=== PATIENT | female | born 1970 | race Caucasian/White ===

== ENCOUNTER → 2016-05-08 | Outpatient (CLI) | payer OTHER ==
[~2016-05-08] MED LIST: ALBU1AER9 INH; EPP3/2 IM; IBUP-1459 PO; LSX40 PO; Levothyroxine Sodium PO; METH1TAB15 PO; NYSCR30 TOP; RANI150T3 PO; TRAMTAB5 PO; VIT IM
== END | disposition home or self-care (01) ==
LOC: C.PAPS 09:59
PROVIDERS: ATTEND Obstetrics & Gynecology
DX: Z12.4 Encounter for screening for malignant neoplasm of cervix (principal); N91.5 Oligomenorrhea, unspecified

== ENCOUNTER → 2016-07-20 | Outpatient (CLI) | payer OTHER | END | disposition home or self-care (01) | LOC: C.LABSPEC 11:00 | PROVIDERS: ATTEND Internal Medicine | DX: E55.9 Vitamin D deficiency, unspecified (principal) ==

== ENCOUNTER → 2016-11-30 | Outpatient (CLI) | payer OTHER | END | disposition home or self-care (01) | LOC: C.LAB 12:33 | PROVIDERS: ATTEND Internal Medicine | DX: E55.9 Vitamin D deficiency, unspecified (principal); E03.9 Hypothyroidism, unspecified ==

== ENCOUNTER → 2017-04-05 | Outpatient (CLI) | payer OTHER ==
[~2017-04-05] MED LIST changes: +ERGO500037 PO; +IBUP-1050 PO; +LEVO100T7 PO; +VNTHFA/IN INH
[2017-04-05 14:51] LABS: ALBUMIN 3.7 gm/dl (3.4-5.0); ALT/SGPT 22 U/L (12-78); BLOOD UREA NITROGEN 20 mg/dl (7-18); CARBON DIOXIDE 28 mmol/L (21-32); CHOLESTEROL 136 mg/dl (0-200); CREATININE 0.78 mg/dl (0.60-1.20); GLUCOSE 77 mg/dl (70-99); POTASSIUM 4.2 mmol/L (3.5-5.1); SODIUM 137 mmol/L (136-145)
[2017-04-05 15:01] LABS: ALKALINE PHOSPHATASE 72 U/L (45-117); AST/SGOT 15 U/L (15-37); LDL CHOLESTEROL CALCULATED 78 mg/dl; TOTAL PROTEIN 7.9 gm/dl (6.4-8.2)
== END | disposition home or self-care (01) ==
LOC: C.LAB 17:42
PROVIDERS: ATTEND Internal Medicine
DX: E55.9 Vitamin D deficiency, unspecified (principal); E03.9 Hypothyroidism, unspecified; T14.8XXA Other injury of unspecified body region, initial encounter; W57.XXXA Bitten or stung by nonvenomous insect and other nonvenomous arthropods, initial encounter; D50.9 Iron deficiency anemia, unspecified; E53.8 Deficiency of other specified B group vitamins

== ENCOUNTER → 2017-08-07 | Outpatient (CLI) | payer OTHER ==
[~2017-08-07] MED LIST changes: -ERGO500037 PO; -IBUP-1050 PO; -LEVO100T7 PO; -VNTHFA/IN INH
[2017-08-07 15:00] LABS: FOLLICLE STIMULAT HORMONE 8.72 IU/L
== END | disposition home or self-care (01) ==
LOC: C.LAB1850 13:06
PROVIDERS: ATTEND Internal Medicine
DX: E55.9 Vitamin D deficiency, unspecified (principal); N91.1 Secondary amenorrhea

== ENCOUNTER → 2017-11-05 | Outpatient (CLI) | payer OTHER ==
[~2017-11-05] MED LIST changes: -ALBU1AER9 INH; +ATROPINE SULFATE 0.1 MG/ML 10 ML SYR ONE; +DOBUTamine HCL 12.5 MG/ML 20 ML VIAL ONE; +ERGO500037 PO; +IBUP-1050 PO; -IBUP-1459 PO; +LEVO100T7 PO; -Levothyroxine Sodium PO; +METOPROLOL TARTRATE 1 MG/ML VIAL ONE; +PERFLUTREN LIPID MICROSPHERE (DEFINITY) IV ONE; +VNTHFA/IN INH
--- NOTE | 2017-11-05 15:33 | DOBUTAMINE ECHO ---
*NOTICE TO RECEIVING DEMOCRAT AGENCY This information is strictly Confidential and protected under [place] law. [place] law prohibits you from making any further disclosure of this information unless further disclosure is expressly permitted by the written consent of the person to whom it pertains or is authorized by law. A general authorization for the release of medical or other information is not sufficient for this purpose. Hospital accepts no responsibility if the information is made available to any other person, INCLUDING THE PATIENT. Interpretation Summary * Name: ALDA CHAMORRO Study Date: 11/05/2017 09:34 AM BP: 101/57 mmHg * Patient Location: [facility] HR: 51 * : 1970 (M/d/yyyy) Gender: Female Height: 61 in * Age: 47 yrs Ethnicity: CA Weight: 380 lb * Performed By: Yaneli Harris RDCS * * Reason For Study: PRE OP, ABNL EKG * BSA: 2.5 m2 * -- Conclusions -- * There is mild asymmetric left ventricular hypertrophy. * Left ventricular systolic function is normal. * Normal diastolic function * Right ventricular systolic pressure is normal. * Normal dobutamine echocardiogram without evidence of inducible ischemia Procedure Details * DOBUTAMINE ECHO, CPT#99019 * A contrast injection of Definity was performed to improve assessment of LV function. * Contrast was injected into an intravenous site in the central line. * One vial of Definity ultrasound contrast was diluted in normal saline to a total volume of 10 ml. A total of '5' ml of solution was administered during imaging. * Lot # [id number] of Definity utilized for procedure. * Expiration date OCT 24. * The attending nurse who injected the contrast agent was FELA ROJO RN. Left Ventricular Findings with Stress * Normal dobutamine echocardiogram without evidence of inducible ischemia Left Ventricle * The left ventricle is normal in size. * There is mild asymmetric left ventricular hypertrophy. * Left ventricular systolic function is normal. * Ejection Fraction = 55-60%. * Normal diastolic function * The left ventricular wall motion is normal at rest. Right Ventricle * The right ventricle is grossly normal size. Atria * The left atrial size is normal. * Right atrial size is normal. Mitral Valve * The mitral valve is grossly normal. * Significant mitral regurgitation is absent. Tricuspid Valve * The tricuspid valve is not well visualized, but is grossly normal. * There is mild tricuspid regurgitation. * Right ventricular systolic pressure is normal. Aortic Valve * The aortic valve is not well visualized. * No hemodynamically significant valvular aortic stenosis. * There is no significant aortic regurgitation. Pulmonic Valve * The pulmonic valve is not well visualized. Great Vessels * The aortic root is normal size. Pericardium * There is no pericardial effusion. Stress Parameters * Normal baseline electrocardiogram. * There was a brief run of what appeared to be an atrial tachycardia, otherwise no significant ST or T-wave changes. * Rest heart rate was '51' BPM. * Rest blood pressure was '101/57' * Maximum heart rate achieved was 148 bpm. * Maximum heart rate was 85 % of maximum age-predicted heart rate. * Maximum blood pressure was '150/74' * Maximum Dobutamine infusion rate was '50' mcg/kg/min. * A total of 1.25 mg of intravenous Atropine was used to supplement Dobutamine for heart rate response. * Dobutamine infusion was terminated due to achieving target heart rate * A total of 10 mg of IV Metoprolol was administered to reverse Dobutamine-induced tachycardia. Left Ventricular Findings with Stress * Baseline EKG was normal There were no significant ST or T-wave changes during peak dobutamine infusion or recovery Baseline echocardiogram demonstrated normal LV systolic function There was normal augmentation of all segments without inducible wall motion abnormalities at peak dobutamine infusion MMode 2D Measurements and Calculations IVSd 1.6 cm IVSs 1.8 cm LVIDd 4.3 cm LVIDs 2.7 cm LVPWd 1.1 cm LVPWs 1.7 cm IVS/LVPW 1.4 FS 38.3 % EDV(Teich) 82.7 ml ESV(Teich) 25.8 ml EF(Teich) 68.8 % EDV(cubed) 79.1 ml ESV(cubed) 18.6 ml EF(cubed) 76.5 % % IVS thick 12.1 % % LVPW thick 48.5 % LV mass(C)d 218.2 grams LV mass(C)dI 87.9 grams/m\S\2 LV mass(C)s 171.9 grams LV mass(C)sI 69.3 grams/m\S\2 SV(Teich) 56.9 ml SI(Teich) 22.9 ml/m\S\2 SV(cubed) 60.5 ml SI(cubed) 24.4 ml/m\S\2 Ao root diam 2.6 cm Ao root area 5.3 cm\S\2 LA dimension 3.9 cm LA/Ao 1.5 LVAd ap4 36.6 cm\S\2 LVLd ap4 8.6 cm EDV(MOD-sp4) 130.2 ml EDV(sp4-el) 132.8 ml LVAs ap4 17.3 cm\S\2 LVLs ap4 7.5 cm ESV(MOD-sp4) 32.8 ml ESV(sp4-el) 34.0 ml EF(MOD-sp4) 74.8 % EF(sp4-el) 74.4 % SV(MOD-sp4) 97.4 ml SI(MOD-sp4) 39.3 ml/m\S\2 SV(sp4-el) 98.8 ml SI(sp4-el) 39.8 ml/m\S\2 Doppler Measurements and Calculations MV E max julio c 78.8 cm/sec MV A max julio c 69.4 cm/sec MV E/A 1.1 MV dec time 0.31 sec Ao V2 max 274.5 cm/sec Ao max PG 30.1 mmHg Ao max PG (full) 18.6 mmHg Ao V2 mean 170.9 cm/sec Ao mean PG 14.7 mmHg Ao mean PG (full) 8.2 mmHg Ao V2 VTI 73.6 cm LV V1 max PG 11.6 mmHg LV V1 mean PG 6.6 mmHg LV V1 max 170.1 cm/sec LV V1 mean 119.2 cm/sec LV V1 VTI 44.7 cm SV(Ao) 386.8 ml SI(Ao) 155.9 ml/m\S\2 TR max julio c 199.9 cm/sec
== END | disposition home or self-care (01) ==
LOC: C.CPL 09:23
PROVIDERS: ATTEND Physician Assistant
DX: Z01.810 Encounter for preprocedural cardiovascular examination (principal); R06.02 Shortness of breath; R53.83 Other fatigue

== ENCOUNTER → 2017-12-02 | Outpatient (CLI) | payer OTHER ==
[~2017-12-02] MED LIST changes: -ATROPINE SULFATE 0.1 MG/ML 10 ML SYR ONE; -DOBUTamine HCL 12.5 MG/ML 20 ML VIAL ONE; -METOPROLOL TARTRATE 1 MG/ML VIAL ONE; -PERFLUTREN LIPID MICROSPHERE (DEFINITY) IV ONE
[2017-12-02 16:40] LABS: BASO % 0.5 %; BASO ABS # 0.03 K/uL (0-0.2); EOS % 2.4 %; EOS ABS # 0.13 K/uL (0-0.5); HEMATOCRIT 41.6 % (37-47); HEMOGLOBIN 13.6 g/dL (12.0-16.0); LYMPH ABS # 1.92 K/uL (1.2-3.4); MEAN CELL VOLUME 92.2 fL (80-100); MEAN CORPUSCULAR HEMOGLOBIN 30.2 pg (25-34); MEAN CORPUSCULAR HGB CONC 32.7 g/dl (32-36); MONO % 10.6 %; MONO ABS # 0.58 K/uL (0.11-0.59); NEUT % 51.5 %; NEUT ABS # 2.83 K/uL (1.4-6.5); PLATELET COUNT 324 K/uL (130-400); RED CELL DISTRIBUTION WIDTH CV 13.2 % (11.5-14.5); RED CELL DISTRIBUTION WIDTH SD 44.3 fL (36.4-46.3); WHITE BLOOD COUNT 5.49 K/uL (4.8-10.8)
== END | disposition home or self-care (01) ==
LOC: C.LAB1850 15:52
PROVIDERS: ATTEND Obstetrics & Gynecology
DX: Z01.812 Encounter for preprocedural laboratory examination (principal); R93.8 Abnormal findings on diagnostic imaging of other specified body structures

== ENCOUNTER 2019-01-12 16:46 | Inpatient (IN) ==
[2019-01-12] MEDS ORDERED: ONDANSETRON INJ 2 MG/ML 2 ML VIAL IV STA (17:41)
[2019-01-12] MEDS ORDERED: DiphenhydrAMINE HCL 50 MG/ML VIAL IV STA (17:42)
[2019-01-12 17:56] LABS: Basophils # (auto) 0.04 K/uL (0-0.2); Basophils % (auto) 0.3 %; Eosinophils # (auto) 0.17 K/uL (0-0.5); Eosinophils % (auto) 1.4 %; Hematocrit (blood only) 40.9 % (37-47); Hemoglobin 13.3 g/dL (12.0-16.0); Immature Granulocytes # (auto) 0.02 K/uL (0.00-0.02); Immature Granulocytes % (auto) 0.2 %; Lymphocytes # (auto) 1.44 K/uL (1.2-3.4); Lymphocytes % (auto) 11.6 %; Mean Corpuscular Hgb Conc 32.5 g/dL (32-36); Mean Corpuscular Volume 92.1 fL (80-100); Mean Platelet Volume 10.7 fL (7.4-10.4); Monocytes # (auto) 0.71 K/uL (0.11-0.59); Monocytes % (auto) 5.7 %; Neutrophils # (auto) 10.02 K/uL (1.4-6.5); Neutrophils % (auto) 80.8 %; Platelet Count 293 K/uL (130-400); RDW Coefficient of Variation 13.4 % (11.5-14.5); RDW Standard Deviation 45.4 fL (36.4-46.3); Red Blood Count 4.44 M/uL (4.2-5.4)
[2019-01-12 18:12] LABS: Alanine Aminotransferase 32 U/L (12-78); Albumin Level 3.3 gm/dl (3.4-5.0); Aspartate Aminotransferase 15 U/L (15-37); BUN Creatinine Ratio 17.5 (10-20); Blood Urea Nitrogen 14 mg/dl (7-18); Carbon Dioxide 27 mmol/L (21-32); Chloride 106 mmol/L (98-107); Est GFR (African American) 100.9; Est GFR (Non-African American) 87.1; Glucose 110 mg/dl (70-99); Lipase 92 U/L (73-393); Potassium 4.1 mmol/L (3.5-5.1); Sodium 140 mmol/L (136-145)
[2019-01-12 18:14] LABS: Alanine Aminotransferase 32 U/L (12-78); Albumin Level 3.5 gm/dl (3.4-5.0); Aspartate Aminotransferase 16 U/L (15-37); BUN Creatinine Ratio 17.6 (10-20); Blood Urea Nitrogen 14 mg/dl (7-18); Calcium 9.1 mg/dl (8.5-10.1); Carbon Dioxide 27 mmol/L (21-32); Chloride 106 mmol/L (98-107); Est GFR (Non-African American) 89.8; Glucose 107 mg/dl (70-99); Potassium 4.1 mmol/L (3.5-5.1); Sodium 139 mmol/L (136-145)
[2019-01-12 18:15] LABS: Albumin Globulin Ratio 0.8 (0.9-2); Alkaline Phosphatase 70 U/L (45-117); Bilirubin,Total 0.4 mg/dl (0.2-1); Globulin 4.1 gm/dl (2.5-4.0); Total Protein 7.4 gm/dl (6.4-8.2)
[2019-01-12 18:16] LABS: Albumin Globulin Ratio 0.9 (0.9-2); Alkaline Phosphatase 71 U/L (45-117); Bilirubin,Total 0.4 mg/dl (0.2-1); Globulin 3.7 gm/dl (2.5-4.0); Total Protein 7.2 gm/dl (6.4-8.2)
[2019-01-12] MEDS ORDERED: MoRPHine SULFATE 4 MG/ML 1 ML CARP\\VIAL IV STA (18:51)
[2019-01-12] MEDS ORDERED: IOVERSOL 100ml IV PRN (18:52)
--- NOTE | 2019-01-12 19:20 | CT Scan Report ---
CT SCAN OF THE ABDOMEN AND PELVIS WITH IV CONTRAST CLINICAL HISTORY: Generalized abdominal pain. COMPARISON STUDY: Abdominal CT dated 12/20/2018. TECHNIQUE: Following the IV administration of 93 cc of Optiray 320, CT scan of the abdomen and pelvi s is performed from the lung bases to the proximal femora. Images are reviewed in the axial, sagittal , and coronal planes. IV contrast was administered without complication. A dose lowering technique wa s utilized adhering to the principles of ALARA. The examination is degraded by large body habitus, a nd by streak artifact from the body wall abutting the CT gantry. CT DOSE: 2157.49 mGy.cm FINDINGS: Lung bases: The tip of a central venous infusion port terminates at the cavoatrial junction. The hear t is normal in size and without pericardial effusion. The lung bases are clear. Liver: The contrast-enhanced liver is normal in size, contour, and attenuation. There is no intrahepa tic biliary ductal dilatation. The hepatic veins and portal veins are patent. Gallbladder: Surgically absent noting clips in the gallbladder fossa. Spleen: Normal in size and attenuation. Pancreas: Moderately atrophic and grossly unremarkable. Adrenal glands: Unremarkable. Kidneys: The contrast enhanced kidneys are normal in size and without hydronephrosis. The kidneys enh ance symmetrically. Abdominal vasculature: The abdominal aorta is normal in course and caliber. An IVC filter is in place . 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 There is no high-grade bowel obstruction. There is a distended and thick-walled loop of small bowel in the right lower quadrant seen on image #243. This measures up to 4.4 cm and there is surrounding inflamma tory change, tethering of the mesentery, and interloop fluid. No pneumatosis intestinalis or portal v enous gas is seen. A small focal of bowel extends through an anterior abdominal wall defect on image #240. There is fluid within this hernia sac. The appendix is well-visualized and normal. Peritoneum: There is no intraperitoneal free air or abdominal ascites. There is a large fat-containin g supra umbilical hernia seen on image #205. Smaller fat-containing subumbilical hernia as are seen o n images #142 and #160. Lymphadenopathy: None. Pelvic viscera: The bladder, uterus, and adnexa are normal as imaged. Skeletal structures: There is chronic posttraumatic deformity seen in the pubic ring bilaterally. Adv anced arthritic change and deformity is noted in the right hip with joint effusion and numerous calci fied joint bodies. Bilateral iliac bolts are in place. No lytic or blastic lesions are seen. There is generalized fatty atrophy of the pelvic musculature. IMPRESSION: 1. Postoperative changes consistent with a history of Balaji-en-Y gastric bypass surgery. No high-grade bowel obstruction is seen. 2. A knuckle of bowel focally extends into a periumbilical abdominal wall defect in the mid abdomen. Additional fat-containing suprarenal umbilical hernias are noted. 3. There is a focally dilated and thick-walled loop of small bowel in the right lower quadrant with s urrounding edema, interloop fluid, and tethering of the mesentery. No pneumatosis intestinalis or por marie venous gas is seen. There is no intraperitoneal free air. This is pathologically indeterminant, a nd an internal hernia is not excluded. This could also be related to adhesions or possibly the above- mentioned ventral hernia. A focal enteritis is considered much less likely. Surgical consultation is advised. 4. No additional abnormal small bowel loops are identified. Electronically signed by: Gerard Callahan M.D. 01/12/2019 7:18 PM
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
[2019-01-12] MEDS: SODIUM CHLORIDE 0.9% 1000ML 1,000 ML IV SCH (20:06)
[2019-01-12] MEDS ORDERED: ALBUTEROL 0.083% NEBU SOLN 3 ML VIAL NEB PRN (21:45)
[2019-01-12] MEDS ORDERED: HYDROmorphone INJ 0.5 MG/0.5 ML SYR IV PRN (21:45)
[2019-01-12] MEDS ORDERED: ONDANSETRON INJ 2 MG/ML 2 ML VIAL IV PRN (21:45)
[2019-01-12] MEDS ORDERED: ENOXAPARIN INJ 40 MG/0.4 ML SYR SQ SCH (22:00)
[2019-01-12] MEDS: FAMOTIDINE 20 MG TAB PO SCH (22:51)
[2019-01-12] MEDS: KETOROLAC TROMETHAMINE 15 MG/ML VIAL IV PRN (22:58)
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
[2019-01-13] MEDS ORDERED: HEPARIN 100 UNIT/ML 5ML FLUSH FLUSH PRN (02:36)
[2019-01-13] MEDS: SODIUM CHLORIDE 0.9% 1000ML 1,000 ML IV SCH ×2 (03:51→11:50)
[2019-01-13] MEDS: ACETAMINOPHEN 325 MG TAB PO PRN (03:54)
[2019-01-13] MEDS: LEVOTHYROXINE SODIUM 100 MCG TABLET PO SCH (06:14)
[2019-01-13 06:36] LABS: Hematocrit (blood only) 37.4 % (37-47); Hemoglobin 11.5 g/dL (12.0-16.0); Mean Corpuscular Hemoglobin 28.8 pg (25-34); Mean Corpuscular Hgb Conc 30.7 g/dL (32-36); Mean Corpuscular Volume 93.7 fL (80-100); Mean Platelet Volume 11.2 fL (7.4-10.4); Platelet Count 269 K/uL (130-400); RDW Coefficient of Variation 13.5 % (11.5-14.5); RDW Standard Deviation 46.5 fL (36.4-46.3); Red Blood Count 3.99 M/uL (4.2-5.4); White Blood Count 4.88 K/uL (4.8-10.8)
[2019-01-13 07:03] LABS: BUN Creatinine Ratio 19.3 (10-20); Calcium 8.6 mg/dl (8.5-10.1); Creatinine Clr Calc Pharmacy 150.8 ml/min; Est GFR (Non-African American) 104.4
[2019-01-13] MEDS: MEDROXYPROGESTERONE ACETATE 10 MG TAB PO SCH (08:03)
[2019-01-13] MEDS: FAMOTIDINE 20 MG TAB PO SCH ×2 (08:03→20:07)
[2019-01-13] MEDS: KETOROLAC TROMETHAMINE 15 MG/ML VIAL IV PRN ×2 (08:06→21:53)
[2019-01-13] MEDS ORDERED: INFLUENZA VIRUS QUAD VACCINE 0.5 ML SYR IM ONE (08:15)
[2019-01-13] MEDS ORDERED: INFLUENZA ADMINISTRATION CHARGE ONE (08:15)
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
--- NOTE | 2019-01-13 12:10 | Hospitalist Progress Note ---
Date of Service January 13, 2019 Assessment & Plan (1) Ventral hernia: Does not appear to be incarcerated. Abdominal discomfort has resolved. Surgery consultation noted. Start clear liquid diet and advance as tolerated. Ambulate. Decrease IV fluids. Surgery does not appear to be necessary at this time. er. (2) Abdominal pain: Pain and nausea control. Resolved (3) Hypothyroidism: Continue Synthroid (4) Systolic murmur: Awaiting cardiac echo report. Asymptomatic. Probably a benign murmur. (5) GERD (gastroesophageal reflux disease): Continue ranitidine Dispositionhopefully home tomorrow Subjective Alert and oriented. She has some low back pain but states her abdominal pain has resolved. Surgery consultation noted. Will start clear liquid diet and advance as tolerated. Taper down IV fluids. Ambulate. Awaiting cardiac echo report to evaluate her cardiac murmur which is probably benign. Review of Systems Review of Systems: Constitutional-no fever or chills ENT-no blurred vision, no double vision, no epistaxis, no sore throat Respiratory-no cough, no wheezing, no shortness of breath Cardiac-no palpitations, no chest pain, no syncope GI-no nausea, vomiting, diarrhea, melena, hematochezia -no urinary retention, no urinary incontinence, no dysuria, no hematuria Musculoskeletal-no joint pain, no muscle tenderness. Low back discomfort which appears to be of muscular etiology Skin-no bruising, no rashes, no pruritus Neuro-no isolated weakness, no paresthesia, no weakness Psych-no depression, no anxiety Physical Exam Physical Exam: General-alert and oriented x3, no fevers, no chills. Morbidly obese HEENT-head atraumatic and normocephalic, TMs intact bilaterally, pupils equal and reactive to light, extraocular muscles intact Neck-no lymphadenopathy or thyromegaly, trachea midline Chest-clear to auscultation percussion. No rales wheezing or rhonchi Cardiac-regular rate and rhythm, normal S1 and S2. Grade 3/6 harsh systolic murmur. Negative S3. Negative S 4 Abdomen-normal bowel sounds, nontender, no hepatosplenomegaly. Obese. No palpable hernias Extremities-no cyanosis, clubbing, or edema Neuro-cranial nerves II through XII intact, motor and sensory function within normal limits, strength symmetrical 5/5, no focal deficits Psych-normal affect, normal mood Results & Data Vital Signs (Past 12 Hours) Vital Signs Temp Pulse Pulse Resp BP BP Pulse Ox 01/13/19 10:59 37.2 C 45 L 20 122/62 95 01/13/19 10:33 44 L 01/13/19 07:57 36.9 C 46 L 16 136/76 96 01/13/19 04:00 36.6 C 52 L 20 145/72 H 97 01/13/19 00:14 52 L Laboratory Results 01/13/19 05:46 01/13/19 05:46 PG Care Time/CCT Total # of Minutes Spent Total Time Spent with Patient: Total time spent is greater than 50% in coordination of care (as documented) at patient's floor/unit and/or counseling patient:
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
[2019-01-13] MEDS ORDERED: MICONAZOLE NITRATE POWDER 43 GM EXT PRN (20:23)
[2019-01-13] MEDS: ENOXAPARIN INJ 40 MG/0.4 ML SYR SQ SCH (21:09)
[2019-01-14] MEDS: SODIUM CHLORIDE 0.9% 1000ML 1,000 ML IV SCH (00:36)
[2019-01-14] MEDS: ACETAMINOPHEN 325 MG TAB PO PRN (05:50)
[2019-01-14] MEDS: LEVOTHYROXINE SODIUM 100 MCG TABLET PO SCH (05:50)
[2019-01-14 06:44] LABS: Basophils # (auto) 0.03 K/uL (0-0.2); Basophils % (auto) 0.6 %; Eosinophils # (auto) 0.24 K/uL (0-0.5); Eosinophils % (auto) 4.9 %; Hematocrit (blood only) 35.4 % (37-47); Hemoglobin 11.3 g/dL (12.0-16.0); Lymphocytes # (auto) 1.36 K/uL (1.2-3.4); Lymphocytes % (auto) 27.6 %; Mean Corpuscular Hemoglobin 29.4 pg (25-34); Mean Corpuscular Hgb Conc 31.9 g/dL (32-36); Mean Corpuscular Volume 92.2 fL (80-100); Mean Platelet Volume 10.8 fL (7.4-10.4); Monocytes # (auto) 0.43 K/uL (0.11-0.59); Monocytes % (auto) 8.7 %; Neutrophils # (auto) 2.86 K/uL (1.4-6.5); Neutrophils % (auto) 58.2 %; Platelet Count 252 K/uL (130-400); RDW Coefficient of Variation 13.5 % (11.5-14.5); RDW Standard Deviation 45.5 fL (36.4-46.3); Red Blood Count 3.84 M/uL (4.2-5.4); White Blood Count 4.92 K/uL (4.8-10.8)
[2019-01-14 07:11] LABS: BUN Creatinine Ratio 16.2 (10-20); Calcium 8.4 mg/dl (8.5-10.1); Creatinine Clr Calc Pharmacy 131.2 ml/min; Est GFR (African American) 102.5; Est GFR (Non-African American) 88.4; Potassium 3.8 mmol/L (3.5-5.1)
[2019-01-14] MEDS: ENOXAPARIN INJ 40 MG/0.4 ML SYR SQ SCH (07:37)
[2019-01-14] MEDS: MEDROXYPROGESTERONE ACETATE 10 MG TAB PO SCH (07:37)
[2019-01-14] MEDS: FAMOTIDINE 20 MG TAB PO SCH (07:37)
--- NOTE | 2019-01-14 12:05 | Hospitalist Progress Note ---
Date of Service January 14, 2019 Assessment & Plan (1) Ventral hernia: Producing intermittent discomfort. No obstruction. Passing flatus. Diet advance to regular diet this morning. Hopefully home later today. Surgery consultation noted. No surgical intervention necessary at this time. Ambulate. (2) Abdominal pain: Pain and nausea control as needed. (3) Hypothyroidism: Continue Synthroid (4) Systolic murmur: This appears to be a dynamic left ventricular outflow tract murmur without any obstruction. Appreciate cardiology consultation and recommendations. No further intervention needed at this time. (5) GERD (gastroesophageal reflux disease): Continue ranitidine Dispositionhopefully home later today Subjective Intermittent abdominal discomfort but she is passing flatus and there is no evidence of obstruction. Diet advance to regular diet today. Hopefully she can go home later today. IV fluids discontinued. Cardiology consultation noted. Previous evaluation of the heart murmur revealed a dynamic left ventricular outflow tract murmur with no obstruction. No further intervention needed at this time. Review of Systems Review of Systems: Constitutional-no fever or chills ENT-no blurred vision, no double vision, no epistaxis, no sore throat Respiratory-no cough, no wheezing, no shortness of breath Cardiac-no palpitations, no chest pain, no syncope GI-no nausea, vomiting, diarrhea, melena, hematochezia. Intermittent midline abdominal discomfort -no urinary retention, no urinary incontinence, no dysuria, no hematuria Musculoskeletal-no joint pain, no muscle tenderness Skin-no bruising, no rashes, no pruritus Neuro-no isolated weakness, no paresthesia, no weakness Psych-no depression, no anxiety Physical Exam Physical Exam: General-alert and oriented x3, no fevers, no chills HEENT-head atraumatic and normocephalic, TMs intact bilaterally, pupils equal and reactive to light, extraocular muscles intact Neck-no lymphadenopathy or thyromegaly, trachea midline Chest-clear to auscultation percussion. No rales wheezing or rhonchi Cardiac-regular rate and rhythm, normal S1 and S2, no murmurs Abdomen-normal bowel sounds, nontender, no hepatosplenomegaly Extremities-no cyanosis, clubbing, or edema Neuro-cranial nerves II through XII intact, motor and sensory function within normal limits, strength symmetrical 5/5, no focal deficits Psych-normal affect, normal mood Results & Data Vital Signs (Past 12 Hours) Vital Signs Temp Pulse Pulse Pulse Pulse Resp BP 01/14/19 11:08 36.8 C 44 L 14 01/14/19 08:05 53 L 01/14/19 07:22 37.2 C 48 L 16 128/88 01/14/19 04:31 36.6 C 51 L 20 BP Pulse Ox 01/14/19 11:08 130/78 97 01/14/19 08:05 01/14/19 07:22 98 01/14/19 04:31 138/75 97 Laboratory Results 01/14/19 06:16 01/14/19 06:16 PG Care Time/CCT Total # of Minutes Spent Total Time Spent with Patient: Total time spent is greater than 50% in coordination of care (as documented) at patient's floor/unit and/or counseling patient: (1) Ventral hernia Obstruction and gangrene presence: without obstruction or gangrene Qualified Code(s): K43.9 - Ventral hernia without obstruction or gangrene (2) Abdominal pain Abdominal location: epigastric Qualified Code(s): R10.13 - Epigastric pain
--- NOTE | 2019-01-14 13:08 | Discharge Summary ---
Date of Service January 14, 2019 Admission HPI Per Admitting Provider 48 y/o female presented to the ED with a constant and sharp abdominal pain that had been present for 2 hours that started as she was walking. No N/V/D, cough, chest pain, SOB, or blood in stools. She feels that she has had a fever of the past few days. She is having low back pain, but reports this to be chronic. No vaginal bleeding or discharge. Admission Exam Per Admitting Provider General- adult female, NAD Head- atraumatic Eyes- PERRL, EOMI, anicteric ENT- oropharynx clear Neck- supple, no JVD, no adenopathy, no thyromegaly. Lungs- clear to auscultation, No rales, rhonchi, or wheezes. Heart- regular rhythm; + II/ GEORGINA, no gallop, no rub appreciated Abdomen- normal bowel sounds, soft, + diffuse tenderness to palpation. 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 Skin- warm & dry Principal Diagnosis Abdominal pain, ventral hernia without obstruction or incarceration Discharge Exam General-alert and oriented x3, no fevers, no chills HEENT-head atraumatic and normocephalic, TMs intact bilaterally, pupils equal and reactive to light, extraocular muscles intact Neck-no lymphadenopathy or thyromegaly, trachea midline Chest-clear to auscultation percussion. No rales wheezing or rhonchi Cardiac-regular rate and rhythm, normal S1 and S2, no murmurs Abdomen-normal bowel sounds, nontender, no hepatosplenomegaly Extremities-no cyanosis, clubbing, or edema Neuro-cranial nerves II through XII intact, motor and sensory function within normal limits, strength symmetrical 5/5, no focal deficits Psych-normal affect, normal mood Discharge Data Allergies Allergy/AdvReac Type Severity Reaction Status Date / Time hornet venom Allergy Severe ANAPHYLAXIS Verified 12/23/18 10:39 WITH YELLOW JACKETS hydrocodone Allergy Intermediate Rash Verified 12/23/18 10:39 codeine Allergy Unknown ALLERGIC Verified 12/23/18 10:39 GENERIC TYLENOL #3 (?)-RASH HIVES Iodinated Contrast Media Allergy Unknown RASH Verified 12/23/18 10:39 ITCHY-CAN EAT SHELLFISH adhesive AdvReac Unknown TAPE-SWELLING Verified 12/23/18 10:39 TESTS SKIN Consultations 01/12/19 19:55 ED Decision to Admit Stat 01/12/19 20:55 Consult General Surgery Routine 01/13/19 13:41 Consult Cardiology Routine Ordered Studies 01/12/19 17:41 CT abd pelvis IV con only Stat Hospital Course (1) Ventral hernia: Producing intermittent discomfort. No obstruction. Passing flatus. Diet advance to regular diet this morning. Hopefully home later today. Surgery consultation noted. No surgical intervention necessary at this time. Ambulate. (2) Abdominal pain: Pain and nausea control as needed. (3) Hypothyroidism: Continue Synthroid (4) Systolic murmur: This appears to be a dynamic left ventricular outflow tract murmur without any obstruction. Appreciate cardiology consultation and recommendations. No further intervention needed at this time. (5) GERD (gastroesophageal reflux disease): Continue ranitidine Dispositionhopefully home later today Total Time Total Time Spent Total Time Spent (In Minutes): 35 Total Time Includes: Examination of the Patient, Discharge Planning and Medication Reconciliation Discharge Plan Discharge Items Patient Disposition: Home - Self-Care Reason For Visit: VENTRAL HERNIA,SBO Discharge Diagnosis: Symptomatic ventral hernia, benign heart murmur Activity: Resume your previous activity Lifting: None Bathing: No limitations Driving/Machine Use: No limitations Weightbearing: Full weightbearing Non-emergency contact: Primary Care Provider Call non-emergency contact if: you have any medication questions and your symptoms worsen Follow-up/Referrals: Nelson Viveros III, MD [Primary Care Provider] - Diet: Regular Addtl Attending Provider Instructions: See primary care provider as soon as possible for referral to a general surgeon for discussion regarding repair of ventral hernia Pending Studies at Discharge: No Stand-Alone Forms: My [facility] [employer] Medications and DC Order Prescriptions: Continued epinephrine 0.3 mg/0.3 mL Auto-Injector 0.3 mg IM Q3H PRN (Reason: Allergic Reaction) Qty: 0 RF: 0 furosemide 40 mg Tablet 80 mg PO DAILY PRN (Reason: Edema) Qty: 0 RF: 0 ibuprofen 200 mg Tablet 1,000 mg PO DAILY PRN (Reason: Pain) Qty: 0 RF: 0 nystatin 100,000 unit/gram cream 1 appln TOP BID Qty: 30 RF: 2 tramadol-acetaminophen [Ultracet] 37.5-325 mg tablet 1 tab PO Q6H PRN (Reason: Pain) 30 Days Qty: 90 RF: 0 albuterol sulfate 90 mcg/actuation HFA aerosol inhaler 1 - 2 puffs INHALATION Q4H PRN (Reason: SOB) Qty: 1 RF: 0 levothyroxine 100 mcg tablet 100 mcg PO DAILY 90 Days Qty: 90 RF: 1 ranitidine HCl 150 mg tablet 150 mg PO HS Qty: 90 RF: 3 methylphenidate HCl 20 mg tablet extended release 20 mg PO DAILY PRN (Reason: hypersomnia) Qty: 30 RF: 0 cyanocobalamin (vitamin B-12) 1,000 mcg/mL kit 1,000 mcg IM MONTHLY RF: 0 medroxyprogesterone 10 mg Tablet 10 mg PO DAILY RF: 0 ergocalciferol (vitamin D2) [Vitamin D2] 50,000 unit capsule 100,000 unit PO WK RF: 0 fluticasone propionate [Flonase Allergy Relief] 50 mcg/actuation spray,suspension 2 sprays intranasal DAILY PRN (Reason: Congestion) RF: 0 nystatin 100,000 unit/gram powder 1 appln TOP TID PRN (Reason: Skin Irritation) RF: 0 Discharge Orders: Discharge Order (Routine); Ordered 01/14/19 Ordered By: Yg Coleman Admission Data Admit Date/Time: 01/12/19 20:54 Attending Provider: Ezequiel Snyder Admit Provider: Ezequiel Snyder Primary Care Provider: Nelson Viveros III Other Providers: Ezequiel Snyder ; Vernon Richardson ; Abe Mariano ; Travis Reno ; Duglas Sauceda ; Oh Nair ; Jose Sierra ; Galo Mercado Jr ; Samm Harvey ; Renetta Whitfield ; Liza Fuentes ; Delmar Gray ; Delmar Miles ; Randall Arshad ; Yg Fabian ; Ambreen Pablo ; Laverne Brambila
== END 2019-01-14 14:57 | disposition home or self-care (01) | DRG 394 ==
LOC: ED 16:46 → 2W 20:54

== ENCOUNTER 2022-07-19 11:47 | Inpatient (IN) ==
[2022-07-19 13:07] LABS: Basophils # (auto) 0.03 K/uL (0-0.2); Basophils % (auto) 0.5 %; Eosinophils # (auto) 0.05 K/uL (0-0.50); Eosinophils % (auto) 0.9 %; Hematocrit (blood only) 40.2 % (37.0-47.0); Hemoglobin 12.8 g/dl (12.0-16.0); Immature Granulocytes # (auto) 0.01 K/uL (0.01-0.20); Immature Granulocytes % (auto) 0.2 %; Lymphocytes # (auto) 1.41 K/uL (1.2-3.4); Mean Corpuscular Hemoglobin 29.1 pg (25.0-34.0); Mean Corpuscular Hgb Conc 31.8 g/dL (32.0-36.0); Mean Corpuscular Volume 91.4 fL (80.0-100.0); Monocytes # (auto) 0.48 K/uL (0.11-0.59); Monocytes % (auto) 8.5 %; Neutrophils # (auto) 3.66 K/uL (1.40-6.50); Neutrophils % (auto) 64.9 %; Platelet Count 272 K/uL (130-400); RDW Coefficient of Variation 13.6 % (11.5-14.5); RDW Standard Deviation 45.4 fL (36.4-46.3); White Blood Count 5.64 K/ul (4.8-10.8)
[2022-07-19 13:20] LABS: Pregnancy Test, Serum Negative (Negative)
[2022-07-19 13:21] LABS: Albumin Globulin Ratio 1.1 (0.9-2); Albumin Level 3.7 gm/dl (3.4-5.0); BUN Creatinine Ratio 15.9 (10-20); Bilirubin,Total 0.7 mg/dl (0.2-1.0); Calcium 8.8 mg/dl (8.6-10.3); Creatinine Clr Calc Pharmacy 133.1 ml/min; Est GFR (African American) 117.6 ml/min; Est GFR (Non-African American) 101.5 ml/min; Globulin 3.3 gm/dl (2.5-4.0); Potassium 3.7 mmol/L (3.5-5.1)
[2022-07-19] MEDS ORDERED: SODIUM CHLORIDE 0.9% 1000ML 1,000 ML IV ONE (14:18)
[2022-07-19] MEDS ORDERED: METOCLOPRAMIDE HCL INJ 5 MG/ML 2 ML VIAL IV STA (14:19)
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
[2022-07-19 15:08] LABS: Appearance Urine Turbid (Clear); Bacteria Urine Automated 4+ (Negative); Blood Urine 1+ (Negative); Color Urine Dark Yellow; Epithelial Cell Urine Auto >30 /lpf (0-5); Glucose Urine UA Negative (Negative); Ketones Urine Trace (Negative); Leukocyte Esterase Urine 1+ (Negative); Nitrite Urine Positive (Negative); Protein Urine Trace (Negative); Specific Gravity Urine 1.029 (1.000-1.030); Urobilinogen Urine Negative (Negative); pH Urine 5.5 (4.5-7.5)
--- NOTE | 2022-07-19 15:21 | CT Scan Report ---
CT OF THE ABDOMEN AND PELVIS WITHOUT CONTRAST CLINICAL HISTORY: Abdominal pain, nausea and vomiting. COMPARISON STUDY: CT of the abdomen and pelvis May 03, 2022. TECHNIQUE: Axial images of the abdomen and pelvis were obtained without IV contrast. Images were revi ewed in the axial, sagittal, and coronal planes. Automated exposure control was utilized for the [place] dy. A dose lowering technique was utilized adhering to the principles of ALARA. FINDINGS: Lung bases are unremarkable. No pneumatosis, free air or portal venous gas is present. Eval uation of the abdomen and pelvis is suboptimal given lack of IV contrast. There is no biliary ductal dilatation status post cholecystectomy. Spleen, adrenal glands, kidneys and pancreas are normal. IVC filter is in place. There are postoperative findings consistent with Balaji-en-Y gastric bypass. Note i s again made of multifocal subcutaneous stranding and skin thickening of the anterior abdominal wall. This was shown on prior CT. Multiple fat containing ventral hernias are noted. The inferior most missael tral hernia on axial image 285 of 521 likely contains a small portion of the small bowel loop. There is associated fluid within the hernia sac. There is adjacent stranding. There is mild dilatation of t he upstream small bowel loops which measure up to 3.3 cm in caliber. There is moderate associated sma ll bowel wall thickening with associated mesenteric stranding. This apparent inflammation is new sinc e CT of May 03, 2022. There is no evidence for a colonic obstruction. No acute fractures are iden tified. Chronic deformity of the right hip with osteophytosis noted. There are postoperative findings within the sacroiliac joints. Chronic deformities of the inferior pubic rami are noted. IMPRESSION: 1. Multiple ventral hernias. The inferior most ventral hernia contains a portion of a small bowel loo p. Mild dilatation of upstream small bowel suggestive of a small bowel obstruction related to the missael tral hernia. Associated moderate small bowel wall thickening and mesenteric infiltration is likely re lated to the small bowel obstruction. Fluid within the hernia sac. Although less likely, a nonspecifi c enteritis could appear similar. Surgical consultation is recommended. 2. Suboptimal evaluation of the abdomen and pelvis given lack of contrast. 3. Status post Balaji-en-Y gastric bypass. 4. Multifocal subcutaneous stranding and skin thickening of the anterior abdominal wall which was venu wn on prior CT. This could reflect edema or cellulitis. ACT 112: Negative or not required by law. Electronically signed by: Alan Quijano M.D. 07/19/2022 3:20 PM
[2022-07-19 15:39] LABS: Bilirubin Urine 1+ (Negative)
[2022-07-19] MEDS ORDERED: MoRPHine SULFATE 4 MG/ML 1 ML CARP\\VIAL IV STA (15:50)
[2022-07-19 16:09] LABS: RBC Urine Automated 0-4 /hpf (0-4)
--- NOTE | 2022-07-19 16:48 | Surgery Consultation ---
Date of Consultation July 19, 2022 Assessment & Plan (1) Incarcerated ventral hernia: pt is a 52 year-old female who presents to ER with 3 days history periumbilical pain with nausea and vomiting, UA- nitrite positive,UTI, CT scan- Multiple ventral hernias. The inferior most ventral hernia contains a portion of a small bowel loop. Mild dilatation of upstream small bowel suggestive of a small bowel obstruction related to the ventral hernia. Associated moderate small bowel wall thickening and mesenteric infiltration is likely related to the small bowel obstruction. Fluid within the hernia sac. Although less likely, a nonspecific enteritis could appear similar. Surgical consultation is recommended. IMP: incarcerated ventral hernia, SBO, UTI, Plan,base on pt's H/P, labs and CT scan finding, I recommend to open repair inferior incarcerated ventral, possible mesh, other ventral hernia( above Umbilical area) will repair 3 months from now on, D/W benefits, risks and alternatives of the surgery, the risks - infection, bleeding, injury other organs, hernia recurrence, complications relate to mesh, NV, DVT, , pt understood, she agreed with surgery, she signed informed consent, I answered all questions, pre-op iv antibiotic, History of Present Illness Reason for Consultation: incarcerated ventral hernia Requesting Physician: Alex Oropeza History of Present Illness CHIEF COMPLAINT: abdominal pain HPI: Patient is a 52-year-old female who presents ER for periumbilical abdominal pain which started on Saturday. Associate with nausea vomiting. Has not had any vomiting since yesterday. Denies any dysuria urgency or frequency. Previous history of cholecystectomy. Still has her appendix. No fevers. No headache or change in vision. No chest pain or shortness of breath. No other exacerbating or remitting factors. I ( Yamile Stanley MD ) got a call for consult incarcerated ventral hernia, I reviewed pt's H/P, labs and CT scan with pt, pt had gastric bypass 20 years ago, Allergies Allergy/AdvReac Type Severity Reaction Status Date / Time hornet venom Allergy Severe ANAPHYLAXIS Verified 05/10/22 08:37 WITH YELLOW JACKETS codeine Allergy Intermediate ALLERGIC Verified 05/10/22 08:37 GENERIC TYLENOL #3 (?)-RASH HIVES hydrocodone Allergy Intermediate Rash Verified 05/10/22 08:37 Iodinated Contrast Media Allergy Intermediate RASH Verified 05/10/22 08:37 ITCHY-CAN EAT SHELLFISH adhesive AdvReac Intermediate TAPE-SWELLING Verified 05/10/22 08:37 TESTS SKIN Home Medications Medication Instructions Recorded Confirmed Type cyanocobalamin (vitamin B-12) 1,000 mcg IM MONTHLY 11/13/18 07/19/22 History 1,000 mcg/mL injection kit medroxyprogesterone 10 mg tablet 10 mg PO DAILY 12/20/18 07/19/22 History fluticasone propionate 50 2 spray intranasal DAILY PRN 03/24/20 07/19/22 Rx mcg/actuation nasal Congestion #47.4 mL spray,suspension (Flonase Allergy Relief) miscellaneous medical supply #1 ea 06/16/20 05/10/22 Rx famotidine 40 mg tablet 40 mg PO HS #90 tabs 03/27/22 07/19/22 Rx furosemide 40 mg tablet See Rx Instructions PO DAILY PRN 03/27/22 07/19/22 Rx Edema #180 tabs ergocalciferol (vitamin D2) 1,250 100,000 unit PO WK #24 caps 04/27/22 07/19/22 Rx mcg (50,000 unit) capsule (Vitamin D2) albuterol sulfate 90 mcg/actuation 2 puff inhalation Q4H PRN 05/14/22 07/19/22 Rx aerosol inhaler Shortness Of Breath #1 inhaler epinephrine 0.3 mg/0.3 mL 0.3 mg (0.3 mL) IM Q3H PRN 05/14/22 07/19/22 Rx injection, auto-injector Allergic Reaction #1 ea nystatin 100,000 unit/gram topical 1 applic topical BID PRN Skin 05/14/22 07/19/22 Rx cream Irritation #15 grams nystatin 100,000 unit/gram topical 1 applic topical DAILY PRN rash 05/14/22 07/19/22 Rx powder #60 grams tramadol 37.5 mg-acetaminophen 325 1 tab PO Q6H PRN Pain 30 days #90 05/14/22 07/19/22 Rx mg tablet tabs clotrimazole 1 % topical solution See Rx Instructions topical BID 05/21/22 07/19/22 Rx #30 mL levothyroxine 100 mcg tablet 100 mcg PO DAILY #90 tabs 06/13/22 07/19/22 Rx methylphenidate HCl 20 mg 40 mg PO DAILY hypersomnia #60 tabs 07/12/22 07/19/22 Rx tablet,extended release Patient History Medical History Allergic reaction to bee sting Anemia Asthma Bowel perforation CDH (congenital dislocation of the hip) Complex endometrial hyperplasia with atypia Dislocation of hip Endometrial polyp Epicondylitis elbow, medial Female infertility GERD (gastroesophageal reflux disease) History of DVT (deep vein thrombosis) Hypothyroidism Lymphedema Morbid obesity with BMI of 60.0-69.9, adult Narcolepsy Oligomenorrhea Osteoarthritis Secondary amenorrhea Sleep apnea TMJ (temporomandibular joint disorder) Surgical History H/O hand surgery H/O repair of left rotator cuff History of cholecystectomy (~1999) History of colonoscopy History of esophagogastroduodenoscopy (EGD) History of gastric bypass History of hip surgery History of laparotomy S/P IVC filter Family History Father Family history of diabetes mellitus Diabetes Uncle Diabetes Social History Smoking Status: Never smoker Second Hand Exposure: No; Hx Alcohol Use: Yes Alcohol type: beer and hard liquor Alcohol Intake Frequency: Monthly or Less Hx Substance Use: Yes Prescribed Medications: Opiates and Painkillers Non- Prescribed Medications: Amphetamines and IV Drugs Preferred Language: Cook Islander Communication Ability: Effective Chef German Required: No Beliefs That Will Affect Care: None marital status: Current Living Situation: Parent current occupational status: disabled Feels Safe at Home: Yes Assistive Devices: Crutches and Glasses Review of Systems Constitutional: obesity Eyes: as per Subjective / HPI Respiratory: sleep apnea Cardiovascular: Additional Comments: mitral regurgitation Gastrointestinal: gastric bypass Musculoskeletal: arthritis Neurologic: as per Subjective / HPI Psychiatric: as per Subjective / HPI Endocrine: hypothyroidism Hematologic / Lymphatic: Vitamin B 12, D, deficiency Physical Exam Constitutional: obesity Eyes: PERRL, conjunctivae normal, anicteric sclerae Neck: trachea midline, no thyromegaly Respiratory: normal respiratory effort, lungs clear to auscultation Cardiovascular: RRR, no murmur, no edema Gastrointestinal (Abdomen): multiple scar, middle line scar, one ventral hernia located above umbilical area, soft, reducible, no tenderness, other ventral hernia located just below umbilical area, tenderness, not reducible, incarcerated ventral hernia, some skin redness, BS +, Musculoskeletal: no cyanosis or clubbing, extremities motor strength 5/5 Neurologic: patellar DTR's 2+ bilat, sensation intact Psychiatric: A+Ox3, euthymic affect Results & Data Vital Signs (Past 12 Hours) Vital Signs Temp Pulse Pulse Resp BP BP Pulse Ox 07/19/22 14:34 57 L 18 132/77 97 07/19/22 11:58 36.6 C 61 18 162/83 H 96 O2 Del Method 07/19/22 14:34 Room Air 07/19/22 11:58 Room Air Laboratory Results Abnormal lab results 07/19/22 07/19/22 07/19/22 Range/Units 12:42 12:42 14:40 MCHC 31.8 L (32.0-36.0) g/dL Glucose 110 H (70-99(Fasting)) mg/dl Lipase 9 L (11-82) U/L Urine Appearance Turbid A (Clear) Urine Protein Trace H (Negative) Urine Ketones Trace H (Negative) Urine Blood 1+ H (Negative) Urine Nitrite Positive A (Negative) Urine Bilirubin 1+ H (Negative) Ur Leukocyte Esterase 1+ H (Negative) Urine WBC (Auto) 10-30 H (0-5) /hpf U Epithel Cells (Auto) >30 H (0-5) /lpf Urine Bacteria (Auto) 4+ H (Negative) Diagnostic Findings CT OF THE ABDOMEN AND PELVIS WITHOUT CONTRAST CLINICAL HISTORY: Abdominal pain, nausea and vomiting. COMPARISON STUDY: CT of the abdomen and pelvis May 03, 2022. TECHNIQUE: Axial images of the abdomen and pelvis were obtained without IV contrast. Images were reviewed in the axial, sagittal, and coronal planes. Automated exposure control was utilized for the study. A dose lowering technique was utilized adhering to the principles of ALARA. FINDINGS: Lung bases are unremarkable. No pneumatosis, free air or portal venous gas is present. Evaluation of the abdomen and pelvis is suboptimal given lack of IV contrast. There is no biliary ductal dilatation status post cholecystectomy. Spleen, adrenal glands, kidneys and pancreas are normal. IVC filter is in place. There are postoperative findings consistent with Balaji-en-Y gastric bypass. Note is again made of multifocal subcutaneous stranding and skin thickening of the anterior abdominal wall. This was shown on prior CT. Multiple fat containing ventral hernias are noted. The inferior most ventral hernia on axial image 285 of 521 likely contains a small portion of the small bowel loop. There is associated fluid within the hernia sac. There is adjacent stranding. There is mild dilatation of the upstream small bowel loops which measure up to 3.3 cm in caliber. There is moderate associated small bowel wall thickening with associated mesenteric stranding. This apparent inflammation is new since CT of May 03, 2022. There is no evidence for a colonic obstruction. No acute fractures are identified. Chronic deformity of the right hip with osteophytosis noted. There are postoperative findings within the sacroiliac joints. Chronic deformities of the inferior pubic rami are noted. IMPRESSION: 1. Multiple ventral hernias. The inferior most ventral hernia contains a portion of a small bowel loop. Mild dilatation of upstream small bowel suggestive of a small bowel obstruction related to the ventral hernia. Associated moderate small bowel wall thickening and mesenteric infiltration is likely related to the small bowel obstruction. Fluid within the hernia sac. Although less likely, a nonspecific enteritis could appear similar. Surgical consultation is recommended. 2. Suboptimal evaluation of the abdomen and pelvis given lack of contrast. 3. Status post Balaji-en-Y gastric bypass. 4. Multifocal subcutaneous stranding and skin thickening of the anterior abdominal wall which was shown on prior CT. This could reflect edema or cellulitis.
[2022-07-19] MEDS ORDERED: SUCCINYLCHOLINE CHLORIDE 20 MG/ML 10 ML VIAL IV ONE (16:51)
[2022-07-19] MEDS ORDERED: fentaNYL citrate PF 100 MCG/2 ML VIAL ONE ×2 (16:51→19:26)
[2022-07-19] MEDS ORDERED: PROPOFOL IV EMULSION 10 MG/ML 20 ML VIAL IV ONE (16:51)
[2022-07-19] MEDS ORDERED: DEXAMETHASONE SOD INJ 4 MG/ML VIAL ONE (16:51)
[2022-07-19] MEDS ORDERED: MIDAZOLAM HCL 1 MG/ML 2ML VIAL ONE (16:51)
[2022-07-19] MEDS ORDERED: ONDANSETRON INJ 2 MG/ML 2 ML VIAL ONE (16:51)
[2022-07-19] MEDS ORDERED: ROCURONIUM BROMIDE 10 MG/ML 5 ML VIAL IV ONE ×2 (16:51→18:38)
[2022-07-19] MEDS ORDERED: LIDOCAINE 2% MPF LOCAL 5 ML VIAL ONE (16:51)
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
[2022-07-19] MEDS ORDERED: metroNIDAZOLE 500 MG/100 ML BAG IV STA (16:59)
--- NOTE | 2022-07-19 16:59 | History & Physical Bridge Note ---
Date of Service July 19, 2022 History & Physical Bridge Note I have examined the patient, reviewed the History & Physical and in the interval since the performance of the History & Physical I have noted the following changes of clinical significance: no changes noted
[2022-07-19] MEDS ORDERED: CIPROFLOXACIN / D5W 400 MG/200 ML BAG IV SCH (17:00)
[2022-07-19] MEDS ORDERED: LIDOCAINE 1% LOCAL 20 ML VIAL ONE (17:07)
[2022-07-19] MEDS ORDERED: BACITRACIN OINT 15 GM TUBE ONE (17:07)
[2022-07-19] MEDS ORDERED: BUPIVACAINE 0.5 % 5 MG/1 ML MPF 30ML VIAL ONE (17:07)
[2022-07-19] MEDS ORDERED: PROMETHAZINE HCL 6.25 MG in SODIUM CHLORIDE 0.9% 50 ML IV PRN (17:16)
[2022-07-19] MEDS ORDERED: ATROPINE SULFATE 0.1 MG/ML 10ML SYR IV PRN (17:16)
[2022-07-19] MEDS ORDERED: ONDANSETRON INJ 2 MG/ML 2 ML VIAL IV PRN (17:16)
[2022-07-19] MEDS ORDERED: ePHEDrine sulfate 50 MG/ML SYR ONE (18:01)
[2022-07-19] MEDS ORDERED: SUGAMMADEX SODIUM 200 MG/2 ML VIAL IV ONE ×2 (20:27→20:36)
--- NOTE | 2022-07-19 20:58 | Post Operative Brief Note ---
Immediate Post Op Note v1 Date of Surgery July 19, 2022 Pre & Post Diagnosis Operation Date: 07/19/22 11:15 Pre-Op Diagnosis: Incarcerated ventral hernia Post-Op Diagnosis: Incarcerated ventral hernias I identified the patient and participated in the time-out.: Yes Procedure Operation Date: 07/19/22 11:15 Actual Procedures p Open Incarcerated Ventral Hernia Repair with mesh - Yamile Stanley MD Surgeon Yamile Stanley MD [employer] Equipment Operator surgical product sales consultant Estimated Blood Loss 30 Findings Consistent with Post-Op Diagnosis incarcerated 3 ventral hernias Fluids 1400ml Specimens hernia sac Drains Irene Catheter (16 Fr. Silicone irene catheter) and Gage-Fuentes Drain (10 moroccan flat Gage-Fuentes drain was inserted into the abdomen by Dr. Stanley during the procedure.) Anesthesia Type General Complications none Disposition Accompanied Patient To Recovery: Yes
[2022-07-19] MEDS: HYDROmorphone INJ 1 MG/ML SYRINGE IV PRN ×9 (21:15→23:23)
--- NOTE | 2022-07-19 22:50 | Anesthesiology Progress Note ---
Date of Service July 19, 2022 Anesthesia Post Procedure Vital Signs Vital Signs: Temp Pulse Pulse Pulse Resp BP BP 07/19/22 22:15 55 L 15 118/65 07/19/22 22:00 54 L 16 135/55 L 07/19/22 21:50 59 L 15 133/71 07/19/22 21:40 60 17 155/45 H 07/19/22 21:30 57 L 15 157/92 H 07/19/22 21:20 64 18 182/95 H 07/19/22 21:10 36.2 C L 69 18 188/94 H 07/19/22 16:50 36.6 C 49 L 18 171/73 H 07/19/22 16:59 07/19/22 14:34 57 L 18 132/77 07/19/22 11:58 36.6 C 61 18 162/83 H Pulse Ox O2 Del Method O2 Flow Rate 07/19/22 22:15 95 Nasal Cannula 3 07/19/22 22:00 95 Nasal Cannula 3 07/19/22 21:50 93 Nasal Cannula 3 07/19/22 21:40 95 Nasal Cannula 3 07/19/22 21:30 95 Nasal Cannula 3 07/19/22 21:20 100 Oxymask 10 07/19/22 21:10 100 Oxymask 10 07/19/22 16:50 98 Room Air 07/19/22 16:59 Room Air 07/19/22 14:34 97 Room Air 07/19/22 11:58 96 Room Air Pain Intensity Lower Abdomen: Pain Intensity: 3 Transfer of Care Handoff Completed per policy Notes Mental Status: alert / awake / arousable Patient Amnestic to Procedure: Yes Nausea / Vomiting: adequately controlled Pain: adequately controlled Airway Patency, RR, SpO2: stable & adequate BP & HR: stable & adequate Hydration State: stable & adequate Anesthetic Complications: no major complications apparent
[2022-07-19] MEDS ORDERED: FLUTICASONE PROPIONATE NA SPR 16 GM BTL PRN (23:03)
[2022-07-19] MEDS ORDERED: ALBUTEROL HFA 8 GM INHALER INH PRN (23:03)
[2022-07-19] MEDS ORDERED: NYSTATIN POWDER 15GM BTL EXT PRN (23:03)
[2022-07-19] MEDS ORDERED: NYSTATIN CR 15 GM TUBE EXT PRN (23:03)
[2022-07-19] MEDS ORDERED: NON-FORMULARY MEDICATION (Cyanocobalamin (Vitamin B-12) 1,000 mcg/mL kit) IM SCH (23:03)
[2022-07-19] MEDS: LACTATED RINGER'S 1,000 ML IV SCH (23:23)
[2022-07-20] MEDS ORDERED: EPINEPHrine INJ 1 MG/ML AMP IM PRN (00:07)
[2022-07-20] MEDS: traMADol HCL 50 MG TABLET PO PRN ×4 (00:57→20:11)
[2022-07-20] MEDS: metroNIDAZOLE 500 MG/100 ML BAG IV SCH ×3 (01:45→18:08)
--- NOTE | 2022-07-20 02:27 | Operative Report (OR) ---
DATE OF PROCEDURE: 07/19/2022. PREOPERATIVE DIAGNOSIS: Incarcerated ventral hernia. POSTOPERATIVE DIAGNOSIS: Incarcerated ventral hernia x3. OPERATION: Open repair of 3 ventral hernias with mesh. SURGEON: Yamile Stanley MD. ANESTHESIA: General. ESTIMATED BLOOD LOSS: About 30 mL. FINDINGS: Incarcerated ventral hernia x3. Total 3 ventral hernias combined to 1 ventral hernia, size about 8 x 9 cm. COMPLICATIONS: None. INDICATIONS FOR THE PROCEDURE: This is a 52-year-old female who presented to ED with 3-day history of abdominal pain, nausea and vomiting. The patient had a CT scan diagnosis of incarcerated ventral hernia and I recommended to do open repair of incarcerated ventral hernia, possible mesh. I did talk to the patient about the benefit, risk, alternate procedure. I indicated the risks may include but not limited to such as bleeding, infection, hernia recurrence, injury to other organs, injury to the bowel, complication related to mesh, bowel obstruction, myocardial infarction, DVT, stroke, even , seroma. The patient understands. The patient signed informed consent and I answered all questions. DETAILS OF PROCEDURE: After we identified the patient and verified the procedure, we brought the patient to the OR, put the patient in the supine position on the OR table. The patient received SCD on bilateral legs to prevent DVT. Also, the patient received 400 mg of Cipro plus 500 mg Flagyl IV for prophylactic antibiotic. The patient received general anesthesia without difficulty. The abdomen was prepped and draped in routine sterile fashion. After timeout, I made a midline incision around the umbilical area and dissected subcutaneous layer. Then, we found the patient had 3 ventral hernias which were incarcerated and all the adhesions on to the abdominal wall, hernia sac contain the small bowel. Then, we did careful dissection of the ventral hernia and small bowel returned to the abdominal cavity and 3 hernias were close to each other, were combined to 1 ventral hernia, total combined 1 ventral hernia size about 8 x 9 cm. I decided to use 11 x 14 cm mesh to repair the ventral hernia. I used #1 Ethibond suture, sutured the mesh to the fascial layer interruptedly 360 degrees. Then, we tied each suture one by one. The mesh seated nicely, no tension. Hemostasis was obtained. Then, I put one 10 mm JABARI drainage near the mesh to prevent seroma. Again, hemostasis obtained. Closed subcutaneous layer by using 2-0 Vicryl continuous running, closed skin by using staple. Then, we put the dressing on. The patient tolerated the procedure well. All instrument, needle and sponge counts were correct x2 at the end of the case. The patient was transferred to recovery room in stable condition. During the procedure, also with resection, the hernia sac sent to pathology. After the procedure, I did talk to the patient about the OR finding and the procedure we did, the patient understands. Job ID: [id number] [facility]
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
[2022-07-20] MEDS: LEVOTHYROXINE SODIUM 100 MCG TABLET PO SCH (06:01)
[2022-07-20] MEDS: HYDROmorphone INJ 1 MG/ML SYRINGE IV PRN ×3 (06:01→21:59)
[2022-07-20] MEDS: CIPROFLOXACIN / D5W 400 MG/200 ML BAG IV SCH ×2 (08:10→20:15)
[2022-07-20] MEDS: METHYLPHENIDATE HCL 10 MG TABLET PO SCH (08:18)
[2022-07-20 09:43] LABS: Basophils # (auto) 0.02 K/uL (0-0.2); Basophils % (auto) 0.2 %; Eosinophils # (auto) 0.01 K/uL (0-0.50); Eosinophils % (auto) 0.1 %; Hemoglobin 11.7 g/dl (12.0-16.0); Immature Granulocytes # (auto) 0.04 K/uL (0.01-0.20); Immature Granulocytes % (auto) 0.4 %; Lymphocytes # (auto) 1.08 K/uL (1.2-3.4); Lymphocytes % (auto) 10.6 %; Mean Corpuscular Hemoglobin 29.3 pg (25.0-34.0); Mean Corpuscular Hgb Conc 31.6 g/dL (32.0-36.0); Mean Corpuscular Volume 92.7 fL (80.0-100.0); Mean Platelet Volume 11.2 fL (9.4-12.4); Monocytes # (auto) 0.95 K/uL (0.11-0.59); Monocytes % (auto) 9.4 %; Neutrophils # (auto) 8.05 K/uL (1.40-6.50); Neutrophils % (auto) 79.3 %; Platelet Count 265 K/uL (130-400); RDW Coefficient of Variation 13.5 % (11.5-14.5); RDW Standard Deviation 46.3 fL (36.4-46.3); Red Blood Count 3.99 M/uL (4.20-5.40); White Blood Count 10.15 K/ul (4.8-10.8)
--- NOTE | 2022-07-20 09:55 | Hospitalist Progress Note ---
Date of Service July 20, 2022 Assessment & Plan (1) Incarcerated ventral hernia: Plan: This is a 52-year-old female who presents with incarcerated ventral hernia. 1. Incarcerated ventral hernia, status post surgical repair. Further management - pt/ot, pain management, DVT ppx - as per surgery. 2. Urinary tract infection, on Cipro. We will follow the cultures. Ucultx - GNB 3. History of hypothyroidism, on Synthroid 4. Morbid obesity. Needs counseling. 5. Gastroesophageal reflux disease. On Pepcid. 6. Sleep apnea, currently her CPAP machine on recall, will do CPAP while in the hospital. 7. History of lymphedema, on Lasix as needed. DVT prophylaxis and disposition as per general surgery. Admission and Anticipated Discharge Date Admission Date: July 19, 2022 Subjective Pt seen in follow up of med consult s/p incarcerated ventral hernia surg. repair (by Dr. Stanley) Currently laying in bed, in no acute distress Pain seems to be well controlled now Starting on clear liquids today Still with Arriaga catheter, plan to remove later today No fevers chills chest pain shortness of breath, no nausea vomiting Review of Systems Review of Systems: All systems reviewed & are unremarkable except as noted in Subjective Physical Exam Physical Exam: GENERAL: morbidly obese F, not in acute distress. HEENT: NC/AT. Extraocular muscles intact. NECK: supple CARDIOVASCULAR: S1 and S2 heard. Regular rate and rhythm. No murmur, no gallop. RESPIRATORY: Normal AP diameter. No accessory muscle use. No wheezing, no crackles. ABDOMEN: Status post incarcerated ventral hernia repair . Obese abdomen. EXTREMITIES: Chronic edema noted. No erythema seen. Results & Data Results & Data Vital Signs (Past 12 Hours) Vital Signs Temp Pulse Pulse Pulse Resp BP Pulse Ox 07/20/22 08:05 36.7 C 50 L 18 130/72 95 07/20/22 02:18 46 L 15 94 07/20/22 00:45 36.6 C 56 L 16 131/73 98 07/19/22 22:45 07/19/22 22:45 36.8 C 55 L 16 123/71 95 07/20/22 01:55 36.6 C 53 L 16 146/71 H 97 07/19/22 23:45 36.5 C 57 L 16 125/66 98 07/19/22 23:15 36.7 C 56 L 16 139/75 97 07/19/22 22:45 36.8 C 55 L 16 123/71 95 07/19/22 22:15 55 L 15 118/65 95 07/19/22 22:00 54 L 16 135/55 L 95 O2 Del Method O2 Flow Rate FiO2 07/20/22 08:05 Room Air 07/20/22 02:18 21 07/20/22 00:45 Nasal Cannula 2 07/19/22 22:45 Nasal Cannula 3 07/19/22 22:45 Nasal Cannula 3 07/20/22 01:55 Nasal Cannula 1 07/19/22 23:45 Nasal Cannula 3 07/19/22 23:15 Nasal Cannula 3 07/19/22 22:45 Nasal Cannula 3 07/19/22 22:15 Nasal Cannula 3 07/19/22 22:00 Nasal Cannula 3 Laboratory Results 07/20/22 07/20/22 07/19/22 Range/Units 08:37 08:37 14:40 WBC 10.15 (4.8-10.8) K/ul RBC 3.99 L (4.20-5.40) M/uL Hgb 11.7 L (12.0-16.0) g/dl Hct 37.0 (37.0-47.0) % MCV 92.7 (80.0-100.0) fL MCH 29.3 (25.0-34.0) pg MCHC 31.6 L (32.0-36.0) g/dL RDW Std Deviation 46.3 (36.4-46.3) fL RDW Coeff of Zeyad 13.5 (11.5-14.5) % Plt Count 265 (130-400) K/uL MPV 11.2 (9.4-12.4) fL Immature Gran % (Auto) 0.4 % Neut % (Auto) 79.3 % Lymph % (Auto) 10.6 % [place] % (Auto) 9.4 % Eos % (Auto) 0.1 % Baso % (Auto) 0.2 % Neut # (Auto) 8.05 H (1.40-6.50) K/uL Lymph # (Auto) 1.08 L (1.2-3.4) K/uL [place] # (Auto) 0.95 H (0.11-0.59) K/uL Eos # (Auto) 0.01 (0-0.50) K/uL Baso # (Auto) 0.02 (0-0.2) K/uL Immature Gran # (Auto) 0.04 (0.01-0.20) K/uL Sodium Pending (136-145) mmol/L Potassium Pending (3.5-5.1) mmol/L Chloride Pending (98-107) mmol/L Carbon Dioxide Pending (21-32) mmol/L Anion Gap Pending (3-11) BUN Pending (6-23) mg/dl Creatinine Pending (0.6-1.2) mg/dl Est Cr Clr Drug Dosing Pending ml/min Est GFR ( Amer) Pending ml/min Est GFR (Non-Af Amer) Pending ml/min BUN/Creatinine Ratio Pending (10-20) Glucose Pending (70-99(Fasting)) mg/dl Calcium Pending (8.6-10.3) mg/dl Total Bilirubin Pending (0.2-1.0) mg/dl AST Pending (13-39) U/L ALT Pending (7-52) U/L Alkaline Phosphatase Pending (34-104) U/L Total Protein Pending (6.0-8.3) gm/dl Albumin Pending (3.4-5.0) gm/dl Globulin Pending (2.5-4.0) gm/dl Albumin/Globulin Ratio Pending (0.9-2) Lipase (11-82) U/L HCG, Qual (Negative) Urine Color Dark Yellow Urine Appearance Turbid A (Clear) Urine pH 5.5 (4.5-7.5) Ur Specific [place] 1.029 (1.000-1.030) Urine Protein Trace H (Negative) Urine Glucose (UA) Negative (Negative) Urine Ketones Trace H (Negative) Urine Blood 1+ H (Negative) Urine Nitrite Positive A (Negative) Urine Bilirubin 1+ H (Negative) Urine Urobilinogen Negative (Negative) Ur Leukocyte Esterase 1+ H (Negative) Urine WBC (Auto) 10-30 H (0-5) /hpf Urine RBC (Auto) 0-4 (0-4) /hpf U Hyaline Cast (Auto) 1-5 (0-5) /lpf U Epithel Cells (Auto) >30 H (0-5) /lpf Urine Bacteria (Auto) 4+ H (Negative) Urine Crystals Not Reportable Other Crystals Talc (None Prsent) 07/19/22 07/19/22 07/19/22 Range/Units 12:42 12:42 12:42 WBC 5.64 (4.8-10.8) K/ul RBC 4.40 (4.20-5.40) M/uL Hgb 12.8 (12.0-16.0) g/dl Hct 40.2 (37.0-47.0) % MCV 91.4 (80.0-100.0) fL MCH 29.1 (25.0-34.0) pg MCHC 31.8 L (32.0-36.0) g/dL RDW Std Deviation 45.4 (36.4-46.3) fL RDW Coeff of Zeyad 13.6 (11.5-14.5) % Plt Count 272 (130-400) K/uL MPV 11.0 (9.4-12.4) fL Immature Gran % (Auto) 0.2 % Neut % (Auto) 64.9 % Lymph % (Auto) 25.0 % [place] % (Auto) 8.5 % Eos % (Auto) 0.9 % Baso % (Auto) 0.5 % Neut # (Auto) 3.66 (1.40-6.50) K/uL Lymph # (Auto) 1.41 (1.2-3.4) K/uL [place] # (Auto) 0.48 (0.11-0.59) K/uL Eos # (Auto) 0.05 (0-0.50) K/uL Baso # (Auto) 0.03 (0-0.2) K/uL Immature Gran # (Auto) 0.01 (0.01-0.20) K/uL Sodium 139 (136-145) mmol/L Potassium 3.7 (3.5-5.1) mmol/L Chloride 105 (98-107) mmol/L Carbon Dioxide 27 (21-32) mmol/L Anion Gap 7 (3-11) BUN 11 (6-23) mg/dl Creatinine 0.69 (0.6-1.2) mg/dl Est Cr Clr Drug Dosing 133.1 ml/min Est GFR ( Amer) 117.6 ml/min Est GFR (Non-Af Amer) 101.5 ml/min BUN/Creatinine Ratio 15.9 (10-20) Glucose 110 H (70-99(Fasting)) mg/dl Calcium 8.8 (8.6-10.3) mg/dl Total Bilirubin 0.7 (0.2-1.0) mg/dl AST 15 (13-39) U/L ALT 8 (7-52) U/L Alkaline Phosphatase 55 (34-104) U/L Total Protein 7.0 (6.0-8.3) gm/dl Albumin 3.7 (3.4-5.0) gm/dl Globulin 3.3 (2.5-4.0) gm/dl Albumin/Globulin Ratio 1.1 (0.9-2) Lipase 9 L (11-82) U/L HCG, Qual Negative (Negative) Urine Color Urine Appearance (Clear) Urine pH (4.5-7.5) Ur Specific [place] (1.000-1.030) Urine Protein (Negative) Urine Glucose (UA) (Negative) Urine Ketones (Negative) Urine Blood (Negative) Urine Nitrite (Negative) Urine Bilirubin (Negative) Urine Urobilinogen (Negative) Ur Leukocyte Esterase (Negative) Urine WBC (Auto) (0-5) /hpf Urine RBC (Auto) (0-4) /hpf U Hyaline Cast (Auto) (0-5) /lpf U Epithel Cells (Auto) (0-5) /lpf Urine Bacteria (Auto) (Negative) Urine Crystals Other Crystals (None Prsent) Medications Administered Current Inpatient Medications Albuterol (Albuterol Hfa 8 Gm Inhaler) 2 puffs INH Q4H PRN PRN Reason: Shortness Of Breath Stop: 08/18/22 23:02 Epinephrine HCl (Epinephrine Inj 1 Mg/Ml Amp) 0.3 mg IM Q3H PRN PRN Reason: Allergic Reaction Stop: 08/19/22 00:06 Ergocalciferol (Ergocalciferol 50,000 Units 1250 Mcg Cap) 100,000 units PO Mo@0900 NIRANJAN Stop: 08/22/22 08:59 Famotidine (Famotidine 40 Mg Tablet) 40 mg PO HS NIRANJAN Stop: 08/19/22 20:59 Fluticasone Propionate (Fluticasone Propionate Na Spr 16 Gm Btl) 2 sprays NA DAILY PRN PRN Reason: Congestion Stop: 08/18/22 23:02 Furosemide (Furosemide 40 Mg Tab) 40 mg PO DAILY PRN PRN Reason: Edema Stop: 08/18/22 23:02 Heparin Sodium (Porcine) (Heparin 100 Unit/Ml 5ml Flush) 5 ml FLUSH PRN PRN PRN Reason: Flush Stop: 08/19/22 01:06 Hydromorphone HCl (Hydromorphone Inj 1 Mg/Ml Syringe) 1 mg IV Q6H PRN PRN Reason: Pain Stop: 08/02/22 23:02 Last Admin: 07/20/22 06:01 Dose: 1 mg Lactated Ringer's (Lr) 1,000 mls @ 80 mls/hr IV .[id number] [facility] Stop: 08/18/22 23:02 Last Admin: 07/19/22 23:23 Dose: 80 mls/hr Ciprofloxacin (Cipro / D5w) 400 mg in 200 mls @ 100 mls/hr IV Q12H [facility]; Prot ocol Stop: 07/30/22 07:59 Last Admin: 07/20/22 08:10 Dose: 100 mls/hr Metronidazole (Flagyl) 500 mg in 100 mls @ 100 mls/hr IV Q8H [facility] Stop: 07/30/22 01:59 Last Infusion: 07/20/22 02:48 Dose: Infused Levothyroxine Sodium (Levothyroxine Sodium 100 Mcg Tablet) 100 mcg PO DAILYBB [facility] Stop: 08/19/22 06:29 Last Admin: 07/20/22 06:01 Dose: 100 mcg Methylphenidate HCl (Methylphenidate Hcl 10 Mg Tablet) 40 mg PO DAILY [facility] Stop: 08/19/22 08:59 Last Admin: 07/20/22 08:18 Dose: 40 mg Miscellaneous (Medroxyprogesterone: Order Awaiting Action) 1 each N/A QS [facility] Stop: 08/19/22 07:59 Last Admin: 07/20/22 07:59 Dose: Not Given Nystatin (Nystatin Cr 15 Gm Tube) 1 appln EXT BID PRN PRN Reason: Skin Irritation Stop: 05/13/23 23:02 Nystatin (Nystatin Powder 15gm Btl) 1 appln EXT DAILY PRN PRN Reason: rash Stop: 08/18/22 23:02 Tramadol HCl (Tramadol Hcl 50 Mg Tablet) 50 mg PO Q4H PRN PRN Reason: Pain Stop: 08/18/22 23:02 Last Admin: 07/20/22 09:43 Dose: 50 mg
[2022-07-20 10:18] LABS: Albumin Globulin Ratio 1.4 (0.9-2); Albumin Level 3.6 gm/dl (3.4-5.0); BUN Creatinine Ratio 16.2 (10-20); Bilirubin,Total 0.6 mg/dl (0.2-1.0); Calcium 8.6 mg/dl (8.6-10.3); Est GFR (African American) 109.5 ml/min; Est GFR (Non-African American) 94.5 ml/min; Globulin 2.6 gm/dl (2.5-4.0); Total Protein 6.2 gm/dl (6.0-8.3)
--- NOTE | 2022-07-20 12:34 | Surgery Progress Note ---
Date of Service July 20, 2022 Assessment & Plan (1) Incarcerated ventral hernia: Plan: pt is a 52 year-old female who presents to ER with 3 days history periumbilical pain with nausea and vomiting, UA- nitrite positive,UTI, CT scan- Multiple ventral hernias. The inferior most ventral hernia contains a portion of a small bowel loop. Mild dilatation of upstream small bowel suggestive of a small bowel obstruction related to the ventral hernia. Associat ed moderate small bowel wall thickening and mesenteric infiltration is likely related to the small bowel obstruction. Fluid within the hernia sac. Although less likely, a nonspecific enteritis could appear similar. Surgical consultation is recommended. IMP: incarcerated ventral hernia, SBO, UTI, Plan,base on pt's H/P, labs and CT scan finding, I recommend to open repair inferior incarcerated ventral, possible mesh, other ventral hernia( above Umbilical area) will repair 3 months from now on, D/W benefits, risks and alternatives of the surgery, the risks - infection, bleeding, injury other or tj, hernia recurrence, complications relate to mesh, NV, DVT, , pt understood, she agreed with surgery, she signed informed consent, I answered all questions, pre-op iv antibiotic, 07/20/2022 12:35 PM F/u S/P open repair incarcerated ventral hernia with mesh. 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 repair (by Dr. Stanley) 07/20/2022 12:[address] Stanley F/U S/P open repair incarcerated ventral hernia with mesh, POD 1 pt is doing fine, good control incision pain, no nausea, no vomiting, no fever, JABARI 80ml clear Review of Systems Constitutional: obesity Eyes: as per Subjective / HPI Respiratory: sleep apnea Cardiovascular: Additional Comments: mitral regurgitation Gastrointestinal: gastric bypass Musculoskeletal: arthritis Neurologic: as per Subjective / HPI Psychiatric: as per Subjective / HPI Endocrine: hypothyroidism Hematologic / Lymphatic: Vitamin B 12, D, deficiency Physical Exam Eyes: PERRL, conjunctivae normal, anicteric sclerae Neck: trachea midline, no thyromegaly Respiratory: normal respiratory effort, lungs clear to auscultation Cardiovascular: RRR, no murmur, no edema Gastrointestinal (Abdomen): soft, mild tenderness at incision site, no rebound pain, no distend, incision intact, no redness, JABARI intact, Musculoskeletal: no cyanosis or clubbing, extremities motor strength 5/5 Neurologic: patellar DTR's 2+ bilat, sensation intact Psychiatric: A+Ox3, euthymic affect Results & Data Vital Signs (Past 12 Hours) Vital Signs Temp Pulse Pulse Resp BP Pulse Ox O2 Del Method 07/20/22 08:05 36.7 C 50 L 18 130/72 95 Room Air 07/20/22 02:18 46 L 15 94 07/20/22 00:45 36.6 C 56 L 16 131/73 98 Nasal Cannula 07/20/22 01:55 36.6 C 53 L 16 146/71 H 97 Nasal Cannula O2 Flow Rate FiO2 07/20/22 08:05 07/20/22 02:18 21 07/20/22 00:45 2 07/20/22 01:55 1
[2022-07-20] MEDS: LACTATED RINGER'S 1,000 ML IV SCH (13:09)
[2022-07-20] MEDS: FAMOTIDINE 40 MG TABLET PO SCH (20:12)
[2022-07-21] MEDS: traMADol HCL 50 MG TABLET PO PRN ×3 (00:21→15:09)
[2022-07-21] MEDS: LACTATED RINGER'S 1,000 ML IV SCH ×2 (00:46→18:10)
[2022-07-21] MEDS: metroNIDAZOLE 500 MG/100 ML BAG IV SCH ×3 (02:40→18:11)
[2022-07-21] MEDS: HYDROmorphone INJ 1 MG/ML SYRINGE IV PRN ×3 (05:33→19:48)
[2022-07-21] MEDS: LEVOTHYROXINE SODIUM 100 MCG TABLET PO SCH (05:36)
[2022-07-21 07:00] LABS: Hematocrit (blood only) 34.1 % (37.0-47.0); Mean Corpuscular Hemoglobin 29.5 pg (25.0-34.0); Mean Corpuscular Hgb Conc 32.3 g/dL (32.0-36.0); Mean Corpuscular Volume 91.4 fL (80.0-100.0); Mean Platelet Volume 11.2 fL (9.4-12.4); Platelet Count 241 K/uL (130-400); RDW Coefficient of Variation 13.5 % (11.5-14.5); RDW Standard Deviation 45.2 fL (36.4-46.3); Red Blood Count 3.73 M/uL (4.20-5.40); White Blood Count 7.73 K/ul (4.8-10.8)
[2022-07-21 07:11] LABS: BUN Creatinine Ratio 15.9 (10-20); Calcium 8.1 mg/dl (8.6-10.3); Est GFR (African American) 117.6 ml/min; Est GFR (Non-African American) 101.5 ml/min; Magnesium 1.4 mg/dl (1.7-2.4); Phosphorus 3.1 mg/dl (2.5-4.9); Potassium 3.3 mmol/L (3.5-5.1)
[2022-07-21] MEDS ORDERED: POTASSIUM CHLORIDE CRTAB 20 MEQ TABCR PO STA (08:35)
[2022-07-21] MEDS ORDERED: MAGNESIUM SULFATE / D5W 1 GM/100 ML BAG IV ONE (08:36)
--- NOTE | 2022-07-21 08:38 | Hospitalist Progress Note ---
Date of Service July 21, 2022 Assessment & Plan (1) Incarcerated ventral hernia: Plan: This is a 52-year-old female who presents with incarcerated ventral hernia. 1. Incarcerated ventral hernia, status post surgical repair. Further management - pt/ot, pain management, DVT ppx - as per surgery. 2. Urinary tract infection, on Cipro. Ucultx - posit. for E. coli - sensitive to cipro 3. History of hypothyroidism, on Synthroid 4. Morbid obesity. Needs counseling. 5. Gastroesophageal reflux disease. On Pepcid. 6. Sleep apnea, currently her CPAP machine on recall, will do CPAP while in the hospital. 7. History of lymphedema, on Lasix as needed. DVT prophylaxis and disposition as per general surgery. Admission and Anticipated Discharge Date Admission Date: July 19, 2022 Subjective Pt seen in follow up of med consult s/p incarcerated ventral hernia surg. repair (by Dr. Stanley) Currently sitting up in chair, in no acute distress Reports some abd. pain after surgery Says she ambulated a little today, however then felt sore On clear liquids - per surgery, will continue clear liquids today No BM yet Arriaga catheter was removed yesterday and she has voided since then No fevers chills chest pain shortness of breath, no nausea vomiting Review of Systems Review of Systems: All systems reviewed & are unremarkable except as noted in Subjective Physical Exam Physical Exam: GENERAL: morbidly obese F, not in acute distress. HEENT: NC/AT. Extraocular muscles intact. NECK: supple CARDIOVASCULAR: S1 and S2 heard. Regular rate and rhythm. No murmur, no gallop. RESPIRATORY: Normal AP diameter. No accessory muscle use. No wheezing, no crackles. ABDOMEN: Status post incarcerated ventral hernia repair . Obese abdomen. EXTREMITIES: Chronic edema noted. No erythema seen. Results & Data Results & Data Vital Signs (Past 12 Hours) Vital Signs Temp Pulse Pulse Resp BP Pulse Ox O2 Del Method 07/21/22 08:01 37.4 C 51 L 18 115/72 94 Room Air 07/20/22 22:00 Room Air 07/20/22 20:50 36.8 C 53 L 18 134/76 98 Room Air Laboratory Results 07/21/22 07/21/22 07/20/22 Range/Units 06:06 06:06 08:37 WBC 7.73 (4.8-10.8) K/ul RBC 3.73 L (4.20-5.40) M/uL Hgb 11.0 L (12.0-16.0) g/dl Hct 34.1 L (37.0-47.0) % MCV 91.4 (80.0-100.0) fL MCH 29.5 (25.0-34.0) pg MCHC 32.3 (32.0-36.0) g/dL RDW Std Deviation 45.2 (36.4-46.3) fL RDW Coeff of Zeyad 13.5 (11.5-14.5) % Plt Count 241 (130-400) K/uL MPV 11.2 (9.4-12.4) fL Immature Gran % (Auto) % Neut % (Auto) % Lymph % (Auto) % [place] % (Auto) % Eos % (Auto) % Baso % (Auto) % Neut # (Auto) (1.40-6.50) K/uL Lymph # (Auto) (1.2-3.4) K/uL [place] # (Auto) (0.11-0.59) K/uL Eos # (Auto) (0-0.50) K/uL Baso # (Auto) (0-0.2) K/uL Immature Gran # (Auto) (0.01-0.20) K/uL Sodium 136 137 (136-145) mmol/L Potassium 3.3 L 4.0 (3.5-5.1) mmol/L Chloride 103 104 (98-107) mmol/L Carbon Dioxide 25 27 (21-32) mmol/L Anion Gap 8 6 (3-11) BUN 11 12 (6-23) mg/dl Creatinine 0.69 0.74 (0.6-1.2) mg/dl Est Cr Clr Drug Dosing 133.0 124.0 ml/min Est GFR ( Amer) 117.6 109.5 ml/min Est GFR (Non-Af Amer) 101.5 94.5 ml/min BUN/Creatinine Ratio 15.9 16.2 (10-20) Glucose 118 H 114 H (70-99(Fasting)) mg/dl Calcium 8.1 L 8.6 (8.6-10.3) mg/dl Phosphorus 3.1 (2.5-4.9) mg/dl Magnesium 1.4 L (1.7-2.4) mg/dl Total Bilirubin 0.6 (0.2-1.0) mg/dl AST 19 (13-39) U/L ALT 18 (7-52) U/L Alkaline Phosphatase 63 (34-104) U/L Total Protein 6.2 (6.0-8.3) gm/dl Albumin 3.6 (3.4-5.0) gm/dl Globulin 2.6 (2.5-4.0) gm/dl Albumin/Globulin Ratio 1.4 (0.9-2) 07/20/22 Range/Units 08:37 WBC 10.15 (4.8-10.8) K/ul RBC 3.99 L (4.20-5.40) M/uL Hgb 11.7 L (12.0-16.0) g/dl Hct 37.0 (37.0-47.0) % MCV 92.7 (80.0-100.0) fL MCH 29.3 (25.0-34.0) pg MCHC 31.6 L (32.0-36.0) g/dL RDW Std Deviation 46.3 (36.4-46.3) fL RDW Coeff of Zeyad 13.5 (11.5-14.5) % Plt Count 265 (130-400) K/uL MPV 11.2 (9.4-12.4) fL Immature Gran % (Auto) 0.4 % Neut % (Auto) 79.3 % Lymph % (Auto) 10.6 % [place] % (Auto) 9.4 % Eos % (Auto) 0.1 % Baso % (Auto) 0.2 % Neut # (Auto) 8.05 H (1.40-6.50) K/uL Lymph # (Auto) 1.08 L (1.2-3.4) K/uL [place] # (Auto) 0.95 H (0.11-0.59) K/uL Eos # (Auto) 0.01 (0-0.50) K/uL Baso # (Auto) 0.02 (0-0.2) K/uL Immature Gran # (Auto) 0.04 (0.01-0.20) K/uL Sodium (136-145) mmol/L Potassium (3.5-5.1) mmol/L Chloride (98-107) mmol/L Carbon Dioxide (21-32) mmol/L Anion Gap (3-11) BUN (6-23) mg/dl Creatinine (0.6-1.2) mg/dl Est Cr Clr Drug Dosing ml/min Est GFR ( Amer) ml/min Est GFR (Non-Af Amer) ml/min BUN/Creatinine Ratio (10-20) Glucose (70-99(Fasting)) mg/dl Calcium (8.6-10.3) mg/dl Phosphorus (2.5-4.9) mg/dl Magnesium (1.7-2.4) mg/dl Total Bilirubin (0.2-1.0) mg/dl AST (13-39) U/L ALT (7-52) U/L Alkaline Phosphatase (34-104) U/L Total Protein (6.0-8.3) gm/dl Albumin (3.4-5.0) gm/dl Globulin (2.5-4.0) gm/dl Albumin/Globulin Ratio (0.9-2) Medications Administered Current Inpatient Medications Albuterol (Albuterol Hfa 8 Gm Inhaler) 2 puffs INH Q4H PRN PRN Reason: Shortness Of Breath Stop: 08/18/22 23:02 Epinephrine HCl (Epinephrine Inj 1 Mg/Ml Amp) 0.3 mg IM Q3H PRN PRN Reason: Allergic Reaction Stop: 08/19/22 00:06 Ergocalciferol (Ergocalciferol 50,000 Units 1250 Mcg Cap) 100,000 units PO Mo@0900 NIRANJAN Stop: 08/22/22 08:59 Famotidine (Famotidine 40 Mg Tablet) 40 mg PO HS NIRANJAN Stop: 08/19/22 20:59 Last Admin: 07/20/22 20:12 Dose: 40 mg Fluticasone Propionate (Fluticasone Propionate Na Spr 16 Gm Btl) 2 sprays NA DAILY PRN PRN Reason: Congestion Stop: 08/18/22 23:02 Furosemide (Furosemide 40 Mg Tab) 40 mg PO DAILY PRN PRN Reason: Edema Stop: 08/18/22 23:02 Heparin Sodium (Porcine) (Heparin 100 Unit/Ml 5ml Flush) 5 ml FLUSH PRN PRN PRN Reason: Flush Stop: 08/19/22 01:06 Hydromorphone HCl (Hydromorphone Inj 1 Mg/Ml Syringe) 1 mg IV Q6H PRN PRN Reason: Pain Stop: 08/02/22 23:02 Last Admin: 07/21/22 05:33 Dose: 1 mg Lactated Ringer's (Lr) 1,000 mls @ 80 mls/hr IV .[id number] [facility] Stop: 08/18/22 23:02 Last Admin: 07/21/22 00:46 Dose: 80 mls/hr Ciprofloxacin (Cipro / D5w) 400 mg in 200 mls @ 100 mls/hr IV Q12H [facility]; Protocol Stop: 07/30/22 07:59 Last Infusion: 07/20/22 22:31 Dose: Infused Metronidazole (Flagyl) 500 mg in 100 mls @ 100 mls/hr IV Q8H [facility] Stop: 07/30/22 01:59 Last Infusion: 07/21/22 03:50 Dose: Infused Magnesium Sulfate/Dextrose (Magnesium Sulfate / D5w) 1 gm in 100 mls @ 50 mls/hr IV ONE ONE Stop: 07/21/22 10:35 Levothyroxine Sodium (Levothyroxine Sodium 100 Mcg Tablet) 100 mcg PO DAILYBB [facility] Stop: 08/19/22 06:29 Last Admin: 07/21/22 05:36 Dose: 100 mcg Magnesium Oxide (Magnesium Oxide 400 Mg Tab) 400 mg PO QAM [facility] Stop: 08/20/22 08:59 Methylphenidate HCl (Methylphenidate Hcl 10 Mg Tablet) 40 mg PO DAILY [facility] Stop: 08/19/22 08:59 Last Admin: 07/20/22 08:18 Dose: 40 mg Miscellaneous (Medroxyprogesterone: Order Awaiting Action) 1 each N/A QS [facility] Stop: 08/19/22 07:59 Last Admin: 07/21/22 01:23 Dose: Not Given Nystatin (Nystatin Cr 15 Gm Tube) 1 appln EXT BID PRN PRN Reason: Skin Irritation Stop: 08/18/22 23:02 Nystatin (Nystatin Powder 15gm Btl) 1 appln EXT DAILY PRN PRN Reason: rash Stop: 08/18/22 23:02 Tramadol HCl (Tramadol Hcl 50 Mg Tablet) 50 mg PO Q4H PRN PRN Reason: Pain Stop: 08/18/22 23:02 Last Admin: 07/21/22 00:21 Dose: 50 mg
[2022-07-21] MEDS: METHYLPHENIDATE HCL 10 MG TABLET PO SCH (09:33)
[2022-07-21] MEDS: CIPROFLOXACIN / D5W 400 MG/200 ML BAG IV SCH ×2 (09:35→19:50)
--- NOTE | 2022-07-21 09:52 | Surgery Progress Note ---
Date of Service July 21, 2022 Assessment & Plan (1) Incarcerated ventral hernia: Plan: She is recovering well 2 days after surgery We will keep her on clear liquids for now she has no return of bowel function Appreciate medicine support and comanagement Admission and Anticipated Discharge Date Admission Date: July 19, 2022 Subjective Patient seen and examined. Laying in bed tolerating clear liquids. Pain controlled. No BM or flatus. Physical Exam Constitutional: WD/WN, vitals as above Gastrointestinal (Abdomen): Dressing clean dry and intact Results & Data Vital Signs (Past 12 Hours) Vital Signs Temp Pulse Resp BP Pulse Ox O2 Del Method 07/21/22 08:01 37.4 C 51 L 18 115/72 94 Room Air 07/20/22 22:00 Room Air PG Care Time/CCT Total # of Minutes Spent Total Time Spent with Patient: Total time spent is greater than 50% in coordination of care (as documented) at patient's floor/unit and/or counseling patient: Coding Level of Care Code 61571 Post Operative Follow-Up Diagnoses Incarcerated ventral hernia K43.6
[2022-07-21] MEDS: MAGNESIUM OXIDE 400 MG TAB PO SCH (11:09)
[2022-07-21] MEDS: FAMOTIDINE 40 MG TABLET PO SCH (19:51)
[2022-07-22] MEDS: metroNIDAZOLE 500 MG/100 ML BAG IV SCH ×3 (02:23→16:39)
[2022-07-22] MEDS: LACTATED RINGER'S 1,000 ML IV SCH ×2 (05:38→22:49)
[2022-07-22] MEDS: LEVOTHYROXINE SODIUM 100 MCG TABLET PO SCH (05:38)
[2022-07-22] MEDS: HYDROmorphone INJ 1 MG/ML SYRINGE IV PRN ×3 (05:42→22:48)
--- NOTE | 2022-07-22 06:03 | Surgery Progress Note ---
Date of Service July 22, 2022 Assessment & Plan (1) Incarcerated hernia: Plan: Status post repair of incarcerated ventral hernia on 07/19/2022 (postop day #3) Continue analgesics Continue antiemetics We will discuss with attending if diet can be advanced further Encourage ambulation Check a.m. labs when available Continue antibiotics in form of Cipro and Flagyl. It is noted the patient has an E. coli urinary tract infection from 07/19/2022. The organism is sensitive to the selected antibiotics. We will discuss with attending if DVT prophylaxis should be initiated Admission and Anticipated Discharge Date Admission Date: July 19, 2022 Supervising Physician Co-Signing Physician Notes I personally saw and evaluated the patient with Dieter Mcdaniel PA-C and agree with the assessment and plan. 52-year-old female status post open incisional incarcerated hernia repair She is tolerating clear liquids without any bowel function yet, we will try to advance her to full liquids and see how she does Encourage ambulation and incentive spirometry Pain control as needed Subjective Patient is resting comfortably in bed. She denies any nausea or vomiting. No BM or flatus noted over the past shift. She does note some tenderness at surgical incisions. She is tolerating clear liquids and notes some improvement of her appetite. Physical Exam Gastrointestinal (Abdomen): Abdomen is soft and nondistended. Incision is intact with rolando. JABARI drain is in place draining mostly serous fluid. (20 cc recorded over the last shift) Results & Data Vital Signs (Past 12 Hours) Vital Signs Temp Pulse Pulse Resp BP Pulse Ox O2 Del Method 07/22/22 03:30 57 L 14 95 07/21/22 23:02 81 22 98 07/21/22 19:50 Room Air 07/21/22 20:53 37.1 C 52 L 18 137/68 96 Room Air FiO2 07/22/22 03:30 21 07/21/22 23:02 21 07/21/22 19:50 07/21/22 20:53 PG Care Time/CCT Total # of Minutes Spent Total Time Spent with Patient: Total time spent is greater than 50% in coordination of care (as documented) at patient's floor/unit and/or counseling patient: Coding Level of Care Code 47683 Post Operative Follow-Up Diagnoses Incarcerated hernia K46.0
[2022-07-22 07:04] LABS: Hematocrit (blood only) 35.8 % (37.0-47.0); Hemoglobin 11.4 g/dl (12.0-16.0); Mean Corpuscular Hemoglobin 29.5 pg (25.0-34.0); Mean Corpuscular Hgb Conc 31.8 g/dL (32.0-36.0); Mean Corpuscular Volume 92.5 fL (80.0-100.0); Mean Platelet Volume 11.1 fL (9.4-12.4); Platelet Count 244 K/uL (130-400); RDW Coefficient of Variation 13.5 % (11.5-14.5); Red Blood Count 3.87 M/uL (4.20-5.40); White Blood Count 6.89 K/ul (4.8-10.8)
[2022-07-22 07:17] LABS: BUN Creatinine Ratio 12.5 (10-20); Calcium 8.4 mg/dl (8.6-10.3); Creatinine Clr Calc Pharmacy 143.4 ml/min; Est GFR (African American) 120.6 ml/min; Est GFR (Non-African American) 104.1 ml/min; Magnesium 1.7 mg/dl (1.7-2.4); Potassium 3.8 mmol/L (3.5-5.1)
[2022-07-22] MEDS: MAGNESIUM OXIDE 400 MG TAB PO SCH (08:42)
--- NOTE | 2022-07-22 08:51 | Hospitalist Progress Note ---
Date of Service July 22, 2022 Assessment & Plan (1) Incarcerated ventral hernia: Plan: This is a 52-year-old female who presents with incarcerated ventral hernia. 1. Incarcerated ventral hernia, status post surgical repair. Further management - pt/ot, pain management, DVT ppx - as per surgery. Discussed w/ surgery at the bedside - pt still not passing flatus, having BMs, but tolerates clear liquid diet, feels hungry- plan to advance to full liquid Pt reports episodes of feeling warm but no fevers documented. Cont. to monitor. 2. Urinary tract infection, on Cipro. Ucultx - posit. for E. coli - sensitive to cipro 3. History of hypothyroidism, on Synthroid 4. Morbid obesity. Needs counseling. 5. Gastroesophageal reflux disease. On Pepcid. 6. Sleep apnea, currently her CPAP machine on recall, will do CPAP while in the hospital. 7. History of lymphedema, on Lasix as needed. DVT prophylaxis and disposition as per general surgery. Admission and Anticipated Discharge Date Admission Date: July 19, 2022 Subjective Pt seen in follow up of med consult s/p incarcerated ventral hernia surg. repair (by Dr. Stanley) Currently sitting up in chair, in no acute distress Reports some abd. pain after surgery On clear liquids - not passing flatus or having BMs, feels hungry -per surgery, will advance to full liquids today No chest pain shortness of breath, no nausea vomiting Reports having episodes when she feels very warm, no fevers documented Review of Systems Review of Systems: All systems reviewed & are unremarkable except as noted in Subjective Physical Exam Physical Exam: GENERAL: morbidly obese F, not in acute distress. HEENT: NC/AT. Extraocular muscles intact. NECK: supple CARDIOVASCULAR: S1 and S2 heard. Regular rate and rhythm. No murmur, no gallop. RESPIRATORY: Normal AP diameter. No accessory muscle use. No wheezing, no crackles. ABDOMEN: Status post incarcerated ventral hernia repair . Obese abdomen. Abdo randy binder present. EXTREMITIES: Chronic edema noted. No erythema seen. Results & Data Results & Data Vital Signs (Past 12 Hours) Vital Signs Temp Pulse Pulse Pulse Resp BP Pulse Ox 07/22/22 07:15 37.1 C 65 18 131/72 96 07/22/22 03:30 57 L 14 95 07/21/22 23:02 81 22 98 07/21/22 20:53 37.1 C 52 L 18 137/68 96 O2 Del Method FiO2 07/22/22 07:15 Room Air 07/22/22 03:30 21 07/21/22 23:02 21 07/21/22 20:53 Room Air Laboratory Results 07/22/22 07/22/22 Range/Units 06:22 06:22 WBC 6.89 (4.8-10.8) K/ul RBC 3.87 L (4.20-5.40) M/uL Hgb 11.4 L (12.0-16.0) g/dl Hct 35.8 L (37.0-47.0) % MCV 92.5 (80.0-100.0) fL MCH 29.5 (25.0-34.0) pg MCHC 31.8 L (32.0-36.0) g/dL RDW Std Deviation 46.0 (36.4-46.3) fL RDW Coeff of Zeyad 13.5 (11.5-14.5) % Plt Count 244 (130-400) K/uL MPV 11.1 (9.4-12.4) fL Sodium 134 L (136-145) mmol/L Potassium 3.8 (3.5-5.1) mmol/L Chloride 101 (98-107) mmol/L Carbon Dioxide 27 (21-32) mmol/L Anion Gap 6 (3-11) BUN 8 (6-23) mg/dl Creatinine 0.64 (0.6-1.2) mg/dl Est Cr Clr Drug Dosing 143.4 ml/min Est GFR ( Amer) 120.6 ml/min Est GFR (Non-Af Amer) 104.1 ml/min BUN/Creatinine Ratio 12.5 (10-20) Glucose 104 H (70-99(Fasting)) mg/dl Calcium 8.4 L (8.6-10.3) mg/dl Magnesium 1.7 (1.7-2.4) mg/dl Medications Administered Current Inpatient Medications Albuterol (Albuterol Hfa 8 Gm Inhaler) 2 puffs INH Q4H PRN PRN Reason: Shortness Of Breath Stop: 08/18/22 23:02 Epinephrine HCl (Epinephrine Inj 1 Mg/Ml Amp) 0.3 mg IM Q3H PRN PRN Reason: Allergic Reaction Stop: 08/19/22 00:06 Ergocalciferol (Ergocalciferol 50,000 Units 1250 Mcg Cap) 100,000 units PO Mo@0900 [facility] Stop: 08/22/22 08:59 Famotidine (Famotidine 40 Mg Tablet) 40 mg PO HS [facility] Stop: 08/19/22 20:59 Last Admin: 07/21/22 19:51 Dose: 40 mg Fluticasone Propionate (Fluticasone Propionate Na Spr 16 Gm Btl) 2 sprays NA DAILY PRN PRN Reason: Congestion Stop: 08/18/22 23:02 Furosemide (Furosemide 40 Mg Tab) 40 mg PO DAILY PRN PRN Reason: Edema Stop: 08/18/22 23:02 Heparin Sodium (Porcine) (Heparin 100 Unit/Ml 5ml Flush) 5 ml FLUSH PRN PRN PRN Reason: Flush Stop: 08/19/22 01:06 Hydromorphone HCl (Hydromorphone Inj 1 Mg/Ml Syringe) 1 mg IV Q6H PRN PRN Reason: Pain Stop: 08/02/22 23:02 Last Admin: 07/22/22 05:42 Dose: 1 mg Lactated Ringer's (Lr) 1,000 mls @ 80 mls/hr IV .[id number] [facility] Stop: 08/18/22 23:02 Last Admin: 07/22/22 05:38 Dose: 80 mls/hr Ciprofloxacin (Cipro / D5w) 400 mg in 200 mls @ 100 mls/hr IV Q12H [facility]; Protocol Stop: 07/30/22 07:59 Last Infusion: 07/21/22 22:03 Dose: Infused Metronidazole (Flagyl) 500 mg in 100 mls @ 100 mls/hr IV Q8H [facility] Stop: 07/30/22 01:59 Last Infusion: 07/22/22 04:16 Dose: Infused Levothyroxine Sodium (Levothyroxine Sodium 100 Mcg Tablet) 100 mcg PO DAILYBB [facility] Stop: 08/19/22 06:29 Last Admin: 07/22/22 05:38 Dose: 100 mcg Magnesium Oxide (Magnesium Oxide 400 Mg Tab) 400 mg PO QAM [facility] Stop: 08/20/22 08:59 Last Admin: 07/21/22 11:09 Dose: 400 mg Methylphenidate HCl (Methylphenidate Hcl 10 Mg Tablet) 40 mg PO DAILY [facility] Stop: 08/19/22 08:59 Last Admin: 07/21/22 09:33 Dose: 40 mg Miscellaneous (Medroxyprogesterone: Order Awaiting Action) 1 each N/A QS [facility] Stop: 08/19/22 07:59 Last Admin: 07/22/22 00:45 Dose: Not Given Nystatin (Nystatin Cr 15 Gm Tube) 1 appln EXT BID PRN PRN Reason: Skin Irritation Stop: 08/18/22 23:02 Nystatin (Nystatin Powder 15gm Btl) 1 appln EXT DAILY PRN PRN Reason: rash Stop: 08/18/22 23:02 Tramadol HCl (Tramadol Hcl 50 Mg Tablet) 50 mg PO Q4H PRN PRN Reason: Pain Stop: 08/18/22 23:02 Last Admin: 07/21/22 15:09 Dose: 50 mg
[2022-07-22] MEDS: traMADol HCL 50 MG TABLET PO PRN ×3 (08:55→19:34)
[2022-07-22] MEDS: METHYLPHENIDATE HCL 10 MG TABLET PO SCH (09:36)
[2022-07-22] MEDS: CIPROFLOXACIN / D5W 400 MG/200 ML BAG IV SCH ×2 (10:25→20:02)
[2022-07-22] MEDS: FAMOTIDINE 40 MG TABLET PO SCH (20:02)
[2022-07-23] MEDS: metroNIDAZOLE 500 MG/100 ML BAG IV SCH ×3 (02:10→18:45)
[2022-07-23] MEDS: LEVOTHYROXINE SODIUM 100 MCG TABLET PO SCH (06:16)
[2022-07-23] MEDS: CIPROFLOXACIN / D5W 400 MG/200 ML BAG IV SCH ×2 (08:15→19:50)
[2022-07-23] MEDS: MAGNESIUM OXIDE 400 MG TAB PO SCH (08:16)
[2022-07-23] MEDS: traMADol HCL 50 MG TABLET PO PRN ×2 (08:18→13:39)
[2022-07-23 08:55] LABS: Hematocrit (blood only) 32.8 % (37.0-47.0); Hemoglobin 10.7 g/dl (12.0-16.0); Mean Corpuscular Hemoglobin 29.7 pg (25.0-34.0); Mean Corpuscular Hgb Conc 32.6 g/dL (32.0-36.0); Mean Corpuscular Volume 91.1 fL (80.0-100.0); Mean Platelet Volume 11.1 fL (9.4-12.4); Platelet Count 267 K/uL (130-400); RDW Coefficient of Variation 13.4 % (11.5-14.5); RDW Standard Deviation 44.6 fL (36.4-46.3); White Blood Count 6.45 K/ul (4.8-10.8)
[2022-07-23] MEDS ORDERED: ERGOCALCIFEROL 50,000 UNITS 1250 MCG CAP PO SCH (09:00)
[2022-07-23] MEDS: METHYLPHENIDATE HCL 10 MG TABLET PO SCH (09:19)
[2022-07-23] MEDS: HYDROmorphone INJ 1 MG/ML SYRINGE IV PRN ×2 (09:47→19:13)
[2022-07-23 10:10] LABS: BUN Creatinine Ratio 10.2 (10-20); Creatinine Clr Calc Pharmacy 155.5 ml/min; Est GFR (African American) 123.9 ml/min; Est GFR (Non-African American) 106.9 ml/min; Magnesium 1.7 mg/dl (1.7-2.4); Phosphorus 3.1 mg/dl (2.5-4.9); Potassium 3.6 mmol/L (3.5-5.1)
[2022-07-23] MEDS: LACTATED RINGER'S 1,000 ML IV SCH (10:49)
--- NOTE | 2022-07-23 11:10 | Hospitalist Progress Note ---
Date of Service July 23, 2022 Assessment & Plan (1) Incarcerated ventral hernia: Plan: This is a 52-year-old female who presents with incarcerated ventral hernia. 1. Incarcerated ventral hernia, status post surgical repair. Further management - pt/ot, pain management, DVT ppx - as per surgery. Diet per surgery - currently on full liquids 2. Urinary tract infection, on Cipro. Ucultx - posit. for E. coli - sensitive to cipro, culture + on 07/19 3. History of hypothyroidism, on Synthroid 4. Morbid obesity. Needs counseling. 5. Gastroesophageal reflux disease. On Pepcid. 6. Sleep apnea, currently her CPAP machine on recall, will do CPAP while in the hospital. 7. History of lymphedema, on Lasix as needed. 8. Anemia - h/h 10.7/32.8 - likely dilutional and blood loss from surgical site, ebl 30ml , ~300ml thus far from drain DVT prophylaxis and disposition as per general surgery. A total of 40 minutes was spent with greater than 50% of that time personally viewing all current laboratory work and diagnostic imaging studies obtained in the ED. Additionally, I was able to view the patients past medication reconciliation and history with direct visualization in the patients chart. Included in the time above, a portion of that time was spent assessing the patient while discussing and collaborating with specialists, if necessary, and making medical decision making on treatment plan. All of the above was collaborated with Dr. Hung. Please see addendum for further details. Admission and Anticipated Discharge Date Admission Date: July 19, 2022 Supervising Physician Co-Signing Physician Notes Pt seen and examined by me, care coordinated w/ B. BRADY Keating, pls refer to h er note above for further detail. Pt is s/p incarcerated ventral hernia repair. Currently sitting up in chair, in NAD. Reports she ambulates to the bathroom. She is passing flatus but did not have a BM yet. Tolerating liquid diet. No nausea or vomiting. Still w/ some abdominal discomfort but denies significant pain. Clear to auscultation, heart sounds regular. Abdominal binder present. Chronic lower extremity edema present. Cont. to closely monitor. Pt under primary - surgical team care. MD Abhilash Subjective Patient was seen and evaluated in room 356. Follow-up incarcerated hernia repair. She is sitting up in bed eating breakfast. States that she passed flatus. Denies fever, chills, sweats, lightheadedness, dizziness, chest pain, shortness breath, cough, nausea, vomiting. Continues to have right-sided abdominal pain. Tolerating liquids. Review of Systems Review of Systems: All systems reviewed & are unremarkable except as noted in HPI & below Physical Exam Physical Exam: Gen: WD/WN, morbidly obese, sitting up in bed, NAD, A&O x3 HEENT: Normocephalic, atraumatic, conjunctivae moist, sclerae anicteric, mucous membranes moist. Lung: Clear to Auscultation bilaterally, no wheezes/rales/rhonchi Heart: Regular rate, regular rhythm, no murmurs, rubs, or gallops Abdomen: Soft, obese + dressing/binder Extremities: chronic b/l lymphedema, no erythema Skin: Warm, no rash, negative turgor. Results & Data Results & Data Vital Signs (Past 12 Hours) Vital Signs Temp Pulse Pulse Resp BP Pulse Ox O2 Del Method 07/23/22 07:45 36.7 C 52 L 16 132/95 95 Room Air 07/23/22 04:02 66 12 95 07/22/22 23:57 62 28 H 96 FiO2 07/23/22 07:45 07/23/22 04:02 21 07/22/22 23:57 21 Medications Administered Current Inpatient Medications Albuterol (Albuterol Hfa 8 Gm Inhaler) 2 puffs INH Q4H PRN PRN Reason: Shortness Of Breath Stop: 08/18/22 23:02 Epinephrine HCl (Epinephrine Inj 1 Mg/Ml Amp) 0.3 mg IM Q3H PRN PRN Reason: Allergic Reaction Stop: 08/19/22 00:06 Ergocalciferol (Ergocalciferol 50,000 Units 1250 Mcg Cap) 100,000 units PO Mo@0900 [facility] Stop: 08/22/22 08:59 Last Admin: 07/23/22 08:16 Dose: 100,000 units Famotidine (Famotidine 40 Mg Tablet) 40 mg PO HS [facility] Stop: 08/19/22 20:59 Last Admin: 07/22/22 20:02 Dose: 40 mg Fluticasone Propionate (Fluticasone Propionate Na Spr 16 Gm Btl) 2 sprays NA DAILY PRN PRN Reason: Congestion Stop: 08/18/22 23:02 Furosemide (Furosemide 40 Mg Tab) 40 mg PO DAILY PRN PRN Reason: Edema Stop: 08/18/22 23:02 Heparin Sodium (Porcine) (Heparin 100 Unit/Ml 5ml Flush) 5 ml FLUSH PRN PRN PRN Reason: Flush Stop: 08/19/22 01:06 Hydromorphone HCl (Hydromorphone Inj 1 Mg/Ml Syringe) 1 mg IV Q6H PRN PRN Reason: Pain Stop: 08/02/22 23:02 Last Admin: 07/23/22 09:47 Dose: 1 mg Lactated Ringer's (Lr) 1,000 mls @ 80 mls/hr IV .[id number] [facility] Stop: 08/18/22 23:02 Last Admin: 07/23/22 10:49 Dose: 80 mls/hr Ciprofloxacin (Cipro / D5w) 400 mg in 200 mls @ 100 mls/hr IV Q12H [facility]; Protocol Stop: 07/30/22 07:59 Last Infusion: 07/23/22 10:29 Dose: Infused Metronidazole (Flagyl) 500 mg in 100 mls @ 100 mls/hr IV Q8H [facility] Stop: 07/30/22 01:59 Last Admin: 07/23/22 10:30 Dose: 100 mls/hr Levothyroxine Sodium (Levothyroxine Sodium 100 Mcg Tablet) 100 mcg PO DAILYBB [facility] Stop: 08/19/22 06:29 Last Admin: 07/23/22 06:16 Dose: 100 mcg Magnesium Oxide (Magnesium Oxide 400 Mg Tab) 400 mg PO QAM [facility] Stop: 08/20/22 08:59 Last Admin: 07/23/22 08:16 Dose: 400 mg Methylphenidate HCl (Methylphenidate Hcl 10 Mg Tablet) 40 mg PO DAILY [facility] Stop: 08/19/22 08:59 Last Admin: 07/23/22 09:19 Dose: 40 mg Miscellaneous (Medroxyprogesterone: Order Awaiting Action) 1 each N/A QS [facility] Stop: 08/19/22 07:59 Last Admin: 07/23/22 08:16 Dose: Not Given Nystatin (Nystatin Cr 15 Gm Tube) 1 appln EXT BID PRN PRN Reason: Skin Irritation Stop: 08/18/22 23:02 Nystatin (Nystatin Powder 15gm Btl) 1 appln EXT DAILY PRN PRN Reason: rash Stop: 08/18/22 23:02 Tramadol HCl (Tramadol Hcl 50 Mg Tablet) 50 mg PO Q4H PRN PRN Reason: Pain Stop: 08/18/22 23:02 Last Admin: 07/23/22 08:18 Dose: 50 mg
--- NOTE | 2022-07-23 13:07 | Surgery Progress Note ---
Date of Service July 23, 2022 Assessment & Plan (1) Incarcerated ventral hernia: Plan: pt is a 52 year-old female who presents to ER with 3 days history periumbilical pain with nausea and vomiting, UA- nitrite positive,UTI, CT scan- Multiple ventral hernias. The inferior most ventral hernia contains a portion of a small bowel loop. Mild dilatation of upstream small bowel suggestive of a small bowel obstruction related to the ventral hernia. Associat ed moderate small bowel wall thickening and mesenteric infiltration is likely related to the small bowel obstruction. Fluid within the hernia sac. Although less likely, a nonspecific enteritis could appear similar. Surgical consultation is recommended. IMP: incarcerated ventral hernia, SBO, UTI, Plan,base on pt's H/P, labs and CT scan finding, I recommend to open repair inferior incarcerated ventral, possible mesh, other ventral hernia( above Umbilical area) will repair 3 months from now on, D/W benefits, risks and alternatives of the surgery, the risks - infection, bleeding, injury other or tj, hernia recurrence, complications relate to mesh, LA, DVT, , pt understood, she agreed with surgery, she signed informed consent, I answered all questions, pre-op iv antibiotic, 07/20/2022 12:35 PM F/u S/P open repair incarcerated ventral hernia with mesh. 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 POD 4 pt is doing fine, regular diet OOB SCD on lovenox 40 mg SQ, once a day, may d/C tomorrow, Admission and Anticipated Discharge Date Admission Date: July 19, 2022 Supervising Physician Co-Signing Physician Notes Pt seen and examined by me, care coordinated w/ BNash Keating PA-C, pls refer to her note above for further detail. Pt is s/p incarcerated ventral hernia repair. Currently sitting up in chair, in NAD. Reports she ambulates to the bathroom. She is passing flatus but did not have a BM yet. Tolerating liquid diet. No nausea or vomiting. Still w/ some abdominal discomfort but denies significant pain. Clear to auscultation, heart sounds regular. Abdominal binder present. Chronic lower extremity edema present. Cont. to closely monitor. Pt under primary - surgical team care. MD Abhilash Subjective Patient was seen and evaluated in room 356. Follow-up incarcerated hernia repair. She is sitting up in bed eating breakfast. States that she passed flatus. Denies fever, chills, sweats, lightheadedness, dizziness, chest pain, shortness breath, cough, nausea, vomiting. Continues to have right-sided abdominal pain. Tolerating liquids. 07/13/2022 1:07PM Dr. Stanley F/U S/P open repair incarcerated ventral hernia, POD 4, pt is doing fine, no significant abdominal pain, no nausea, no vomiting, no fever, passed gas, no BM yet, Review of Systems Constitutional: obesity Eyes: as per Subjective / HPI Respiratory: sleep apnea Cardiovascular: Additional Comments: mitral regurgitation Gastrointestinal: gastric bypass Musculoskeletal: arthritis Neurologic: as per Subjective / HPI Psychiatric: as per Subjective / HPI Endocrine: hypothyroidism Hematologic / Lymphatic: Vitamin B 12, D, deficiency Physical Exam Eyes: PERRL, conjunctivae normal, anicteric sclerae Neck: trachea midline, no thyromegaly Respiratory: normal respiratory effort, lungs clear to auscultation Cardiovascular: RRR, no murmur, no edema Gastrointestinal (Abdomen): soft, NT, ND, the incision intact, no redness, BS +, Musculoskeletal: no cyanosis or clubbing, extremities motor strength 5/5 Neurologic: patellar DTR's 2+ bilat, sensation intact Psychiatric: A+Ox3, euthymic affect Results & Data Vital Signs (Past 12 Hours) Vital Signs Temp Pulse Pulse Resp BP Pulse Ox O2 Del Method 07/23/22 10:00 Room Air 07/23/22 07:45 36.7 C 52 L 16 132/95 95 Room Air 07/23/22 04:02 66 12 95 FiO2 07/23/22 10:00 07/23/22 07:45 07/23/22 04:02 21 Laboratory Results Abnormal lab results 07/23/22 07/23/22 Range/Units 07:54 07:54 RBC 3.60 L (4.20-5.40) M/uL Hgb 10.7 L (12.0-16.0) g/dl Hct 32.8 L (37.0-47.0) % Sodium 134 L (136-145) mmol/L Creatinine 0.59 L (0.6-1.2) mg/dl Glucose 102 H (70-99(Fasting)) mg/dl Calcium 8.0 L (8.6-10.3) mg/dl
[2022-07-23] MEDS: POLYETHYLENE (MIRALAX) 17 GM PACK PO SCH (13:37)
[2022-07-23] MEDS: FAMOTIDINE 40 MG TABLET PO SCH (19:54)
[2022-07-23] MEDS: HEPARIN 100 UNIT/ML 5ML FLUSH FLUSH PRN (21:55)
[2022-07-24] MEDS: metroNIDAZOLE 500 MG/100 ML BAG IV SCH ×3 (02:36→17:26)
[2022-07-24] MEDS: HYDROmorphone INJ 1 MG/ML SYRINGE IV PRN ×2 (06:21→23:26)
[2022-07-24] MEDS: FUROSEMIDE 40 MG TAB PO PRN (06:22)
[2022-07-24] MEDS: LEVOTHYROXINE SODIUM 100 MCG TABLET PO SCH (06:22)
[2022-07-24 06:35] LABS: Basophils # (auto) 0.05 K/uL (0-0.2); Basophils % (auto) 0.8 %; Eosinophils % (auto) 4.5 %; Hemoglobin 11.3 g/dl (12.0-16.0); Immature Granulocytes # (auto) 0.01 K/uL (0.01-0.20); Immature Granulocytes % (auto) 0.2 %; Lymphocytes # (auto) 1.24 K/uL (1.2-3.4); Lymphocytes % (auto) 18.6 %; Mean Corpuscular Hemoglobin 29.5 pg (25.0-34.0); Mean Corpuscular Hgb Conc 32.3 g/dL (32.0-36.0); Mean Corpuscular Volume 91.4 fL (80.0-100.0); Mean Platelet Volume 10.9 fL (9.4-12.4); Monocytes # (auto) 0.67 K/uL (0.11-0.59); Monocytes % (auto) 10.1 %; Neutrophils # (auto) 4.38 K/uL (1.40-6.50); Neutrophils % (auto) 65.8 %; Platelet Count 309 K/uL (130-400); RDW Coefficient of Variation 13.2 % (11.5-14.5); RDW Standard Deviation 44.4 fL (36.4-46.3); Red Blood Count 3.83 M/uL (4.20-5.40); White Blood Count 6.65 K/ul (4.8-10.8)
[2022-07-24 06:45] LABS: Albumin Globulin Ratio 1.1 (0.9-2); Albumin Level 3.3 gm/dl (3.4-5.0); BUN Creatinine Ratio 12.9 (10-20); Bilirubin,Total 0.4 mg/dl (0.2-1.0); Calcium 8.8 mg/dl (8.6-10.3); Creatinine Clr Calc Pharmacy 148.8 ml/min; Est GFR (African American) 117.1 ml/min; Magnesium 1.8 mg/dl (1.7-2.4); Phosphorus 3.9 mg/dl (2.5-4.9); Potassium 4.1 mmol/L (3.5-5.1); Total Protein 6.3 gm/dl (6.0-8.3)
[2022-07-24 07:04] LABS: Ferritin 104.6 ng/ml (8-388)
[2022-07-24] MEDS: CIPROFLOXACIN / D5W 400 MG/200 ML BAG IV SCH ×2 (07:50→23:21)
[2022-07-24] MEDS: MAGNESIUM OXIDE 400 MG TAB PO SCH (09:44)
[2022-07-24] MEDS: POLYETHYLENE (MIRALAX) 17 GM PACK PO SCH (09:44)
[2022-07-24] MEDS: METHYLPHENIDATE HCL 10 MG TABLET PO SCH (09:49)
--- NOTE | 2022-07-24 13:15 | Hospitalist Progress Note ---
Date of Service July 24, 2022 Assessment & Plan (1) Incarcerated ventral hernia: Plan: This is a 52-year-old female who presents with incarcerated ventral hernia. 1. Incarcerated ventral hernia, status post surgical repair. Further management - pt/ot, pain management, DVT ppx - as per surgery. Diet per surgery - currently on full liquids labs reviewed by myself 2. Urinary tract infection, on Cipro. Ucultx - posit. for E. coli - sensitive to cipro, culture + on 07/19 3. History of hypothyroidism, on Synthroid 4. Morbid obesity. Needs counseling. 5. Gastroesophageal reflux disease. On Pepcid. 6. Sleep apnea, currently her CPAP machine on recall, will do CPAP while in the hospital. 7. History of lymphedema, on Lasix as needed. 8. Anemia - h/h 10.7/32.8 - likely dilutional and blood loss from surgical site, ebl 30ml , ~300ml thus far from drain DVT prophylaxis and disposition as per general surgery. A total of 40 minutes was spent with greater than 50% of that time personally viewing all current laboratory work and diagnostic imaging studies obtained in the ED. Additionally, I was able to view the patients past medication reconciliation and history with direct visualization in the patients chart. Included in the time above, a portion of that time was spent assessing the patient while discussing and collaborating with specialists, if necessary, and making medical decision making on treatment plan. All of the above was collaborated with Dr. Hung. Please see addendum for further details. Admission and Anticipated Discharge Date Admission Date: July 19, 2022 Supervising Physician Co-Signing Physician Notes Pt seen and examined by me, care coordinated w/ Mo Keatnig PA-C, pls refer to her note above for further detail. Pt is s/p incarcerated ventral hernia repair. Currently laying in bed in NAD. Reports she ambulates to the bathroom and hallway. She is passing flatus but did not have a BM yet. Tolerating diet. No nausea or vomiting. Still w/ abdominal discomfort. Clear to auscultation, heart sounds regular. Chronic lower extremity edema present. Cont. to closely monitor. Pt under primary - surgical team care. enema ordered by surgery. poss. MENDOZA [email or web address] MD Abhilash Subjective Patient was seen and evaluated in room 356. Follow-up incarcerated hernia repair. She is sitting up in bed eating breakfast. States that she passed flatus. Still no bowel movement. Denies fever, chills, sweats, lightheadedness, dizziness, chest pain, shortness breath, cough, nausea, vomiting. Continues to have right-sided abdominal pain. Tolerating diet. Review of Systems Review of Systems: All systems reviewed & are unremarkable except as noted in HPI & below Physical Exam Physical Exam: Gen: WD/WN, morbidly obese, sitting up in bed, NAD, A&O x3 HEENT: Normocephalic, atraumatic, conjunctivae moist, sclerae anicteric, mucous membranes moist. Lung: Clear to Auscultation bilaterally, no wheezes/rales/rhonchi Heart: Regular rate, regular rhythm, no murmurs, rubs, or gallops Abdomen: Soft, obese + dressing/binder Extremities: chronic b/l lymphedema, no erythema Skin: Warm, no rash, negative turgor. Results & Data Results & Data Vital Signs (Past 12 Hours) Vital Signs Temp Pulse Pulse Resp BP Pulse Ox O2 Del Method 07/24/22 11:31 36.7 C 61 20 126/70 96 Room Air 07/24/22 07:32 37.1 C 51 L 20 130/73 97 Room Air 07/24/22 03:52 72 22 94 FiO2 07/24/22 11:31 07/24/22 07:32 07/24/22 03:52 21 Laboratory Results Short CBC 07/24/22 Range/Units 06:05 WBC 6.65 (4.8-10.8) K/ul Hgb 11.3 L (12.0-16.0) g/dl Hct 35.0 L (37.0-47.0) % Plt Count 309 (130-400) K/uL BMP 07/24/22 06:05 Sodium 134 L Potassium 4.1 Chloride 101 Carbon Dioxide 28 BUN 9 Creatinine 0.70 Glucose 99 Calcium 8.8 Liver Function 07/24/22 Range/Units 06:05 Total Bilirubin 0.4 (0.2-1.0) mg/dl AST 10 L (13-39) U/L ALT 11 (7-52) U/L Alkaline Phosphatase 51 (34-104) U/L Albumin 3.3 L (3.4-5.0) gm/dl
[2022-07-24] MEDS ORDERED: SOD PHOSPHATE/SOD BIPHOSPHATE ENEMA 132 ML BTL PR STA (17:19)
--- NOTE | 2022-07-24 17:24 | Surgery Progress Note ---
Date of Service July 24, 2022 Assessment & Plan (1) Incarcerated ventral hernia: Plan: pt is a 52 year-old female who presents to ER with 3 days history periumbilical pain with nausea and vomiting, UA- nitrite positive,UTI, CT scan- Multiple ventral hernias. The inferior most ventral hernia contains a portion of a small bowel loop. Mild dilatation of upstream small bowel suggestive of a small bowel obstruction related to the ventral hernia. Associat ed moderate small bowel wall thickening and mesenteric infiltration is likely related to the small bowel obstruction. Fluid within the hernia sac. Although less likely, a nonspecific enteritis could appear similar. Surgical consultation is recommended. IMP: incarcerated ventral hernia, SBO, UTI, Plan,base on pt's H/P, labs and CT scan finding, I recommend to open repair inferior incarcerated ventral, possible mesh, other ventral hernia( above Umbilical area) will repair 3 months from now on, D/W benefits, risks and alternatives of the surgery, the risks - infection, bleeding, injury other or tj, hernia recurrence, complications relate to mesh, ND, DVT, , pt understood, she agreed with surgery, she signed informed consent, I answered all questions, pre-op iv antibiotic, 07/20/2022 12:35 PM F/u S/P open repair incarcerated ventral hernia with mesh. POD 1 pt is doing fine, clear diet OOB SCD on lovenox 40 mg SQ, once a day, medical education specialist surgeon will cover this weekend, thanks, 07/23/2022 1:11 PM F/u S/P open repair incarcerated ventral hernia with mesh. POD 4 pt is doing fine, regular diet OOB SCD on lovenox 40 mg SQ, once a day, august d/C tomorrow, 07/24/2022 5:26 PM F/U S/P open repair incarcerated ventral hernia with mesh, POD 5 doing fine, fleet enema consult case supervisor. august D/C tomorrow, will F/U Admission and Anticipated Discharge Date Admission Date: July 19, 2022 Supervising Physician Co-Signing Physician Notes Pt seen and examined by me, care coordinated w/ BNash Keating PA-C, pls refer to her note above for further detail. Pt is s/p incarcerated ventral hernia repair. Currently sitting up in chair, in NAD. Reports she ambulates to the bathroom. She is passing flatus but did not have a BM yet. Tolerating liquid diet. No nausea or vomiting. Still w/ some abdominal discomfort but denies significant pain. Clear to auscultation, heart sounds regular. Abdominal binder present. Chronic lower extremity edema present. Cont. to closely monitor. Pt under primary - surgical team care. MD Abhilash Subjective Patient was seen and evaluated in room 356. Follow-up incarcerated hernia repair. She is sitting up in bed eating breakfast. States that she passed flatus. Still no bowel movement. Denies fever, chills, sweats, lightheadedness, dizziness, chest pain, shortness breath, cough, nausea, vomiting. Continues to have right-sided abdominal pain. Tolerating diet. 07/24/2022 5:21PM, DR. Stanley F/U S/P repair incarcerated ventral hernia with mesh, pt is doing fine, no significant abdominal pain, tolerated diet,no fever. JABARI 35 ml, clear Review of Systems Constitutional: obesity Eyes: as per Subjective / HPI Respiratory: sleep apnea Cardiovascular: Additional Comments: mitral regurgitation Gastrointestinal: gastric bypass Musculoskeletal: arthritis Neurologic: as per Subjective / HPI Psychiatric: as per Subjective / HPI Endocrine: hypothyroidism Hematologic / Lymphatic: Vitamin B 12, D, deficiency Physical Exam Eyes: PERRL, conjunctivae normal, anicteric sclerae Neck: trachea midline, no thyromegaly Respiratory: normal respiratory effort, lungs clear to auscultation Cardiovascular: RRR, no murmur, no edema Gastrointestinal (Abdomen): soft, NT, ND, the incision intact, no redness, JABARI intact, Musculoskeletal: no cyanosis or clubbing, extremities motor strength 5/5 Neurologic: patellar DTR's 2+ bilat, sensation intact Psychiatric: A+Ox3, euthymic affect Results & Data Vital Signs (Past 12 Hours) Vital Signs Temp Pulse Resp BP Pulse Ox O2 Del Method 07/24/22 16:17 36.7 C 45 L 18 125/74 99 Room Air 07/24/22 11:31 36.7 C 61 20 126/70 96 Room Air 07/24/22 07:32 37.1 C 51 L 20 130/73 97 Room Air Laboratory Results Abnormal lab results 07/24/22 07/24/22 Range/Units 06:05 06:05 RBC 3.83 L (4.20-5.40) M/uL Hgb 11.3 L (12.0-16.0) g/dl Hct 35.0 L (37.0-47.0) % [place] # (Auto) 0.67 H (0.11-0.59) K/uL Sodium 134 L (136-145) mmol/L Iron 29 L (35-150) mcg/dl Transferrin % Sat 11 L (15-50) % AST 10 L (13-39) U/L Albumin 3.3 L (3.4-5.0) gm/dl
[2022-07-24] MEDS: FAMOTIDINE 40 MG TABLET PO SCH (23:21)
[2022-07-25] MEDS: metroNIDAZOLE 500 MG/100 ML BAG IV SCH ×3 (01:34→18:36)
[2022-07-25] MEDS: HEPARIN 100 UNIT/ML 5ML FLUSH FLUSH PRN (06:11)
[2022-07-25] MEDS: LEVOTHYROXINE SODIUM 100 MCG TABLET PO SCH (06:15)
[2022-07-25 07:10] LABS: Hematocrit (blood only) 33.8 % (37.0-47.0); Mean Corpuscular Hemoglobin 29.1 pg (25.0-34.0); Mean Corpuscular Hgb Conc 32.5 g/dL (32.0-36.0); Mean Corpuscular Volume 89.4 fL (80.0-100.0); Mean Platelet Volume 11.1 fL (9.4-12.4); Platelet Count 334 K/uL (130-400); RDW Coefficient of Variation 13.3 % (11.5-14.5); RDW Standard Deviation 43.8 fL (36.4-46.3); Red Blood Count 3.78 M/uL (4.20-5.40)
[2022-07-25 07:21] LABS: BUN Creatinine Ratio 15.3 (10-20); Calcium 8.4 mg/dl (8.6-10.3); Creatinine Clr Calc Pharmacy 144.7 ml/min; Est GFR (African American) 113.2 ml/min; Est GFR (Non-African American) 97.7 ml/min; Magnesium 1.7 mg/dl (1.7-2.4); Phosphorus 3.7 mg/dl (2.5-4.9); Potassium 3.7 mmol/L (3.5-5.1)
[2022-07-25] MEDS: CIPROFLOXACIN / D5W 400 MG/200 ML BAG IV SCH ×2 (09:08→20:12)
[2022-07-25] MEDS: HYDROmorphone INJ 1 MG/ML SYRINGE IV PRN ×3 (09:08→23:41)
[2022-07-25] MEDS: METHYLPHENIDATE HCL 10 MG TABLET PO SCH (09:08)
[2022-07-25] MEDS: POLYETHYLENE (MIRALAX) 17 GM PACK PO SCH (09:09)
[2022-07-25] MEDS: MAGNESIUM OXIDE 400 MG TAB PO SCH (09:09)
--- NOTE | 2022-07-25 13:23 | Surgery Progress Note ---
Date of Service July 25, 2022 Assessment & Plan (1) Incarcerated ventral hernia: Plan: pt is a 52 year-old female who presents to ER with 3 days history periumbilical pain with nausea and vomiting, UA- nitrite positive,UTI, CT scan- Multiple ventral hernias. The inferior most ventral hernia contains a portion of a small bowel loop. Mild dilatation of upstream small bowel suggestive of a small bowel obstruction related to the ventral hernia. Associat ed moderate small bowel wall thickening and mesenteric infiltration is likely related to the small bowel obstruction. Fluid within the hernia sac. Although less likely, a nonspecific enteritis could appear similar. Surgical consultation is recommended. IMP: incarcerated ventral hernia, SBO, UTI, Plan,base on pt's H/P, labs and CT scan finding, I recommend to open repair inferior incarcerated ventral, possible mesh, other ventral hernia( above Umbilical area) will repair 3 months from now on, D/W benefits, risks and alternatives of the surgery, the risks - infection, bleeding, injury other or tj, hernia recurrence, complications relate to mesh, MS, DVT, , pt understood, she agreed with surgery, she signed informed consent, I answered all questions, pre-op iv antibiotic, 07/20/2022 12:35 PM F/u S/P open repair incarcerated ventral hernia with mesh. POD 1 pt is doing fine, clear diet OOB SCD on lovenox 40 mg SQ, once a day, oncology consultant surgeon will cover this weekend, thanks, 07/23/2022 1:11 PM F/u S/P open repair incarcerated ventral hernia with mesh. POD 4 pt is doing fine, regular diet OOB SCD on lovenox 40 mg SQ, once a day, august d/C tomorrow, 07/24/2022 5:26 PM F/U S/P open repair incarcerated ventral hernia with mesh, POD 5 doing fine, fleet enema consult medical case worker. august D/C tomorrow, will F/U 07/25/2022 1:25 PM F/U S/P open repair incarcerated ventral hernia with mesh, POD 6 doing fine, fleet enema D/W medical case worker. waiting insurance approve. august D/C tomorrow, will F/U Admission and Anticipated Discharge Date Admission Date: July 19, 2022 Supervising Physician Co-Signing Physician Notes Pt seen and examined by me, care coordinated w/ BNash Keating PA-C, pls refer to her note above for further detail. Pt is s/p incarcerated ventral hernia repair. Currently laying in bed in NAD. Reports she ambulates to the bathroom and hallway. She is passing flatus but did not have a BM yet. Tolerating diet. No nausea or vomiting. Still w/ abdominal discomfort. Clear to auscultation, heart sounds regular. Chronic lower extremity edema present. Cont. to closely monitor. Pt under primary - surgical team care. enema ordered by surgery. poss. MENDOZA Hung MD Subjective Patient was seen and evaluated in room 356. Follow-up incarcerated hernia repair. She is sitting up in bed eating breakfast. States that she passed flatus. Still no bowel movement. Denies fever, chills, sweats, lightheadedness, dizziness, chest pain, shortness breath, cough, nausea, vomiting. Continues to have right-sided abdominal pain. Tolerating diet. 07/24/2022 5:21PM, DR. Stanley F/U S/P repair incarcerated ventral hernia with mesh, pt is doing fine, no significant abdominal pain, tolerated diet,no fever. JABARI 35 ml, clear 07/25/2022 1:22PM, DR. Jaden Fernandez/Iona S/P repair incarcerated ventral hernia with mesh, POD 6 pt is doing fine, no significant abdominal pain, tolerated diet,no fever. JABARI 20 ml, clear. passed gas, no BM yet, normal WBC, Review of Systems Constitutional: obesity Eyes: as per Subjective / HPI Respiratory: sleep apnea Cardiovascular: Additional Comments: mitral regurgitation Gastrointestinal: gastric bypass Musculoskeletal: arthritis Neurologic: as per Subjective / HPI Psychiatric: as per Subjective / HPI Endocrine: hypothyroidism Hematologic / Lymphatic: Vitamin B 12, D, deficiency Physical Exam Eyes: PERRL, conjunctivae normal, anicteric sclerae Neck: trachea midline, no thyromegaly Respiratory: normal respiratory effort, lungs clear to auscultation Cardiovascular: RRR, no murmur, no edema Gastrointestinal (Abdomen): soft, NT, NT, the incision intact, no redness, BS +, Musculoskeletal: no cyanosis or clubbing, extremities motor strength 5/5 Neurologic: patellar DTR's 2+ bilat, sensation intact Psychiatric: A+Ox3, euthymic affect Results & Data Vital Signs (Past 12 Hours) Vital Signs Temp Pulse Resp BP Pulse Ox O2 Del Method 07/25/22 09:15 Room Air 07/25/22 07:35 36.8 C 48 L 16 115/73 97 Room Air Laboratory Results Abnormal lab results 07/25/22 07/25/22 Range/Units 06:10 06:10 RBC 3.78 L (4.20-5.40) M/uL Hgb 11.0 L (12.0-16.0) g/dl Hct 33.8 L (37.0-47.0) % Calcium 8.4 L (8.6-10.3) mg/dl
[2022-07-25] MEDS ORDERED: SOD PHOSPHATE/SOD BIPHOSPHATE ENEMA 132 ML BTL PR STA (13:26)
--- NOTE | 2022-07-25 17:26 | Hospitalist Progress Note ---
Date of Service July 25, 2022 Assessment & Plan (1) Incarcerated ventral hernia: Plan: This is a 52-year-old female who presents with incarcerated ventral hernia. 1. Incarcerated ventral hernia, status post surgical repair. Further management - pt/ot, pain management, DVT ppx - as per surgery Diet per surgery - diet advanced without issue Had a bowel movement this morning. Continue bowel regimen 2. Urinary tract infection, on Cipro. Ucultx - posit. for E. coli - sensitive to Cipro, culture + on 07/19. Will complete abx course tomorrow. 3. History of hypothyroidism, on Synthroid 4. Morbid obesity. Needs counseling. 5. Gastroesophageal reflux disease. On Pepcid. 6. Sleep apnea, currently her CPAP machine on recall, will do CPAP while in the hospital and may need Trilogy if discharged to SNF 7. History of lymphedema, on Lasix as needed. 8. Anemia - hgb 11 (11.3 yesterday). Continue to monitor DVT prophylaxis and disposition as per general surgery. Dr. Stanley plans to discharge tomorrow if accepted to [facility] - appreciate CM assistance with placement. Thank you for this consultation. We will follow the patient with you during their hospital stay. You can reach a member of the [facility]/10 via [employer]. I spent a total of 40 minutes coordinating, documenting, and providing care for this patient excluding time spent in the performance of separately billed services. Admission and Anticipated Discharge Date Admission Date: July 19, 2022 Supervising Physician Co-Signing Physician Notes Pt seen and examined by me, care coordinated w/ Eliane Salazar PA-C, pls refer to her note above for further detail. Pt is s/p incarcerated ventral hernia repair. Currently laying in bed in NAD. Reports she ambulates to the bathroom and hallway. She had BM after using enema. Tolerating diet. No nausea or vomiting. Still w/ abdominal discomfort. Clear to auscultation, heart sounds regular. Chronic lower extremity edema present. Cont. to closely monitor. Pt under primary - surgical team care. Poss. MENDOZA huang. MD Abhilash Subjective Seen and examined in bedside chair while eating lunch. Slight discomfort at surgical site but improving. Did have small bowel movement this morning, continue regimen. Tolerating diet without issue. No fever, chills, lightheadedness, chest pain, shortness of breath, nausea, vomiting, abdominal pain, dysuria. Discussed importance of ambulating in the anders as tolerated to promote return of normal bowel function. Review of Systems Review of Systems: At least ten systems reviewed and negative except as noted in the HPI. Physical Exam Physical Exam: Gen: WD/WN, morbidly obese, sitting in bedside chair, NAD, A&O x3 HEENT: Normocephalic, atraumatic, conjunctivae moist, sclerae anicteric, mucous membranes moist. Lung: Clear to Auscultation bilaterally, no wheezes/rales/rhonchi Heart: Regular rate, regular rhythm, no murmurs, rubs, or gallops Abdomen: Soft, obese + dressing/binder, drain visualized Extremities: chronic b/l lymphedema, no erythema Skin: Warm, no rash, negative turgor. Results & Data Results & Data Vital Signs (Past 12 Hours) Vital Signs Temp Pulse Pulse Resp BP BP Pulse Ox 07/25/22 16:31 36.7 C 60 19 131/50 L 97 07/25/22 09:15 07/25/22 07:35 36.8 C 48 L 16 115/73 97 O2 Del Method 07/25/22 16:31 Room Air 07/25/22 09:15 Room Air 07/25/22 07:35 Room Air Laboratory Results Short CBC 07/25/22 Range/Units 06:10 WBC 7.00 (4.8-10.8) K/ul Hgb 11.0 L (12.0-16.0) g/dl Hct 33.8 L (37.0-47.0) % Plt Count 334 (130-400) K/uL BMP 07/25/22 06:10 Sodium 136 Potassium 3.7 Chloride 101 Carbon Dioxide 29 BUN 11 Creatinine 0.72 Glucose 98 Calcium 8.4 L Diagnostic Findings Abdomen/Pelvis CT 07/19/22 14:18 CT OF THE ABDOMEN AND PELVIS WITHOUT CONTRAST CLINICAL HISTORY: Abdominal pain, nausea and vomiting. COMPARISON STUDY: CT of the abdomen and pelvis May 03, 2022. TECHNIQUE: Axial images of the abdomen and pelvis were obtained without IV contrast. Images were reviewed in the axial, sagittal, and coronal planes. Automated exposure control was utilized for the study. A dose lowering technique was utilized adhering to the principles of ALARA. FINDINGS: Lung bases are unremarkable. No pneumatosis, free air or portal venous gas is present. Evaluation of the abdomen and pelvis is suboptimal given lack of IV contrast. There is no biliary ductal dilatation status post cholecystectomy. Spleen, adrenal glands, kidneys and pancreas are normal. IVC filter is in place. There are postoperative findings consistent with Balaji-en-Y gastric bypass. Note is again made of multifocal subcutaneous stranding and skin thickening of the anterior abdominal wall. This was shown on prior CT. Multiple fat containing ventral hernias are noted. The inferior most ventral hernia on axial image 285 of 521 likely contains a small portion of the small bowel loop. There is associated fluid within the hernia sac. There is adjacent stranding. There is mild dilatation of the upstream small bowel loops which measure up to 3.3 cm in caliber. There is moderate associated small bowel wall thickening with associated mesenteric stranding. This apparent inflammation is new since CT of May 03, 2022. There is no evidence for a colonic obstruction. No acute fractures are identified. Chronic deformity of the right hip with osteophytosis noted. There are postoperative findings within the sacroiliac joints. Chronic deformities of the inferior pubic rami are noted. IMPRESSION: 1. Multiple ventral hernias. The inferior most ventral hernia contains a portion of a small bowel loop. Mild dilatation of upstream small bowel suggestive of a small bowel obstruction related to the ventral hernia. Associated moderate small bowel wall thickening and mesenteric infiltration is likely related to the small bowel obstruction. Fluid within the hernia sac. Although less likely, a nonspecific enteritis could appear similar. Surgical consultation is recommended. 2. Suboptimal evaluation of the abdomen and pelvis given lack of contrast. 3. Status post Balaji-en-Y gastric bypass. 4. Multifocal subcutaneous stranding and skin thickening of the anterior abdominal wall which was shown on prior CT. This could reflect edema or cellulitis. ACT 112: Negative or not required by law. Electronically signed by: Alan Quijano M.D. 07/19/2022 3:20 PM
[2022-07-25] MEDS: FAMOTIDINE 40 MG TABLET PO SCH (20:12)
[2022-07-26] MEDS: metroNIDAZOLE 500 MG/100 ML BAG IV SCH ×3 (02:34→18:03)
[2022-07-26] MEDS: LEVOTHYROXINE SODIUM 100 MCG TABLET PO SCH (05:48)
[2022-07-26] MEDS: HYDROmorphone INJ 1 MG/ML SYRINGE IV PRN (05:53)
[2022-07-26] MEDS: CIPROFLOXACIN / D5W 400 MG/200 ML BAG IV SCH ×2 (08:11→20:48)
[2022-07-26] MEDS: POLYETHYLENE (MIRALAX) 17 GM PACK PO SCH (09:36)
[2022-07-26] MEDS: METHYLPHENIDATE HCL 10 MG TABLET PO SCH ×2 (09:36→15:34)
[2022-07-26] MEDS: MAGNESIUM OXIDE 400 MG TAB PO SCH (09:37)
[2022-07-26] MEDS: HEPARIN 100 UNIT/ML 5ML FLUSH FLUSH PRN (11:43)
--- NOTE | 2022-07-26 11:49 | Surgery Progress Note ---
Date of Service July 26, 2022 Assessment & Plan (1) Incarcerated ventral hernia: Plan: pt is a 52 year-old female who presents to ER with 3 days history periumbilical pain with nausea and vomiting, UA- nitrite positive,UTI, CT scan- Multiple ventral hernias. The inferior most ventral hernia contains a portion of a small bowel loop. Mild dilatation of upstream small bowel suggestive of a small bowel obstruction related to the ventral hernia. Associat ed moderate small bowel wall thickening and mesenteric infiltration is likely related to the small bowel obstruction. Fluid within the hernia sac. Although less likely, a nonspecific enteritis could appear similar. Surgical consultation is recommended. IMP: incarcerated ventral hernia, SBO, UTI, Plan,base on pt's H/P, labs and CT scan finding, I recommend to open repair inferior incarcerated ventral, possible mesh, other ventral hernia( above Umbilical area) will repair 3 months from now on, D/W benefits, risks and alternatives of the surgery, the risks - infection, bleeding, injury other or tj, hernia recurrence, complications relate to mesh, NM, DVT, , pt understood, she agreed with surgery, she signed informed consent, I answered all questions, pre-op iv antibiotic, 07/20/2022 12:35 PM F/u S/P open repair incarcerated ventral hernia with mesh. POD 1 pt is doing fine, clear diet OOB SCD on lovenox 40 mg SQ, once a day, web content executive surgeon will cover this weekend, thanks, 07/23/2022 1:11 PM F/u S/P open repair incarcerated ventral hernia with mesh. POD 4 pt is doing fine, regular diet OOB SCD on lovenox 40 mg SQ, once a day, may d/C tomorrow, 07/24/2022 5:26 PM F/U S/P open repair incarcerated ventral hernia with mesh, POD 5 doing fine, fleet enema consult case folder. august D/C tomorrow, will F/U 07/25/2022 1:25 PM F/U S/P open repair incarcerated ventral hernia with mesh, POD 6 doing fine, fleet enema D/W case folder. waiting insurance approve. august D/C tomorrow, will F/U 07/26/2022 11:46 AM F/U S/P open repair incarcerated ventral hernia with mesh, POD 7 doing fine, D/W case folder. insurance denied D/C home. PT will go to pt's home for PT, give post-op care instruction, F/u me 1 week for remove JABARI, pt understood, she agreed with discharge to home today, I answered all questions, Admission and Anticipated Discharge Date Admission Date: July 19, 2022 Supervising Physician Co-Signing Physician Notes Pt seen and examined by me, care coordinated w/ Eliane Salazar PA-C, pls refer to her note above for further detail. Pt is s/p incarcerated ventral hernia repair. Currently laying in bed in NAD. Reports she ambulates to the bathroom and hallway. She had BM after using enema. Tolerating diet. No nausea or vomiting. Still w/ abdominal discomfort. Clear to auscultation, heart sounds regular. Chronic lower extremity edema present. Cont. to closely monitor. Pt under primary - surgical team care. Poss. DC tmrmary ann. MD Abhilash Subjective Seen and examined in bedside chair while eating lunch. Slight discomfort at surgical site but improving. Did have small bowel movement this morning, continue regimen. Tolerating diet without issue. No fever, chills, lightheadedness, chest pain, shortness of breath, nausea, vomiting, abdominal pain, dysuria. Discussed importance of ambulating in the anders as tolerated to promote return of normal bowel function. 07/26/22 11:42 AM, DR. Stanley F/U S/P open repair incarcerated ventral hernia with mesh, POD 7 pt is doing fine, no significant abdominal pain, tolerated diet, no nausea, no vomiting, no fever, passed BM JABARI 30 ml clear Review of Systems Constitutional: obesity Eyes: as per Subjective / HPI Respiratory: sleep apnea Cardiovascular: Additional Comments: mitral regurgitation Gastrointestinal: gastric bypass Musculoskeletal: arthritis Neurologic: as per Subjective / HPI Psychiatric: as per Subjective / HPI Endocrine: hypothyroidism Hematologic / Lymphatic: Vitamin B 12, D, deficiency Physical Exam Eyes: PERRL, conjunctivae normal, anicteric sclerae Neck: trachea midline, no thyromegaly Respiratory: normal respiratory effort, lungs clear to auscultation Cardiovascular: RRR, no murmur, no edema Gastrointestinal (Abdomen): soft, mild tenderness at incision site, no redness, no drainage on incision site, JABARI intact, Musculoskeletal: no cyanosis or clubbing, extremities motor strength 5/5 Neurologic: patellar DTR's 2+ bilat, sensation intact Psychiatric: A+Ox3, euthymic affect Results & Data Vital Signs (Past 12 Hours) Vital Signs Temp Pulse Pulse Resp BP Pulse Ox O2 Del Method 07/26/22 11:04 36.5 C 62 18 127/58 L 99 Room Air 07/26/22 09:15 Room Air 07/26/22 07:42 36.9 C 53 L 18 122/55 L 97 Room Air 07/26/22 03:16 53 L 13 94 FiO2 07/26/22 11:04 07/26/22 09:15 07/26/22 07:42 07/26/22 03:16 21
[2022-07-26] MEDS: traMADol HCL 50 MG TABLET PO PRN ×2 (11:57→18:09)
[2022-07-26] MEDS: FUROSEMIDE 40 MG TAB PO PRN (12:10)
--- NOTE | 2022-07-26 12:30 | Discharge Summary (DS) ---
DATE OF ADMISSION: 07/19/2022. DATE OF DISCHARGE: 07/27/2022. ADMISSION DIAGNOSIS: Incarcerated ventral hernia. DISCHARGE DIAGNOSIS: Incarcerated ventral hernia. PROCEDURE: Open repair of incarcerated ventral hernia with mesh. SURGEON: Yamile Stanley MD. DETAILS OF DISCHARGE SUMMARY: This is a 52-year-old female who presented to ED with acute abdominal pain and the patient had a CT scan diagnosis of incarcerated ventral hernia on 07/19/2022. We took the patient to the OR, we did the open repair of incarcerated ventral hernia with mesh. After the procedure, the patient is doing fine and the patient had passed a bowel movement with a regular diet, no nausea, no vomiting. No significant abdominal pain. PHYSICAL EXAMINATION: VITAL SIGNS: Temperature is 36.5, respiratory rate 18, heart rate at 62, blood pressure 127/58, O2 saturation 99% on room air. GENERAL: The patient is alert, awake, oriented x3. HEENT: Within normal limitation. NEUROLOGIC: Intact. NECK: No JVD. CHEST: Bilateral lung sounds clear. HEART: Normal S1 and S2. No murmur. ABDOMEN: Soft and nondistended. Mild tenderness on the incision site. The incision is intact. No redness, no drainage. Also, patient has one JABARI drainage on the abdominal wall. JABARI drainage is intact, today put out only 30 mL clear and we will keep the JABARI in when discharge patient to home. EXTREMITIES: No edema. We discharged the patient to the home, also gave the patient postoperative care instruction. I will follow up the patient in one week to remove the JABARI drainage. I instructed the patient to record and empty the JABARI drainage once a day. The patient understands. Job ID: [id number] [facility]
--- NOTE | 2022-07-26 14:11 | Hospitalist Progress Note ---
Date of Service July 26, 2022 Assessment & Plan (1) Incarcerated ventral hernia: Plan: This is a 52-year-old female who presents with incarcerated ventral hernia. 1. Incarcerated ventral hernia, status post surgical repair. Further management - pt/ot, pain management, DVT ppx - as per surgery Diet per surgery - diet advanced without issue Had a bowel movement this morning. Continue bowel regimen 2. Urinary tract infection, on Cipro. Ucultx - posit. for E. coli - sensitive to Cipro, culture + on 07/19. Completing antibiotic course today 3. History of hypothyroidism, on Synthroid 4. Morbid obesity. Needs counseling. 5. Gastroesophageal reflux disease. On Pepcid. 6. Sleep apnea, currently her CPAP machine on recall, will do CPAP while in the hospital and may need Trilogy if discharged to SNF 7. History of lymphedema, on Lasix as needed. 8. Anemia - hgb stable . Continue to monitor DVT prophylaxis and disposition as per general surgery. Dr. Stanley plans to discharge tomorrow if accepted to [facility] - appreciate CM assistance with placement. Thank you for this consultation. We will follow the patient with you during their hospital stay. You can reach a [facility] via [employer]. I spent a total of 40 minutes coordinating, documenting, and providing care for this patient excluding time spent in the performance of separately billed services. Admission and Anticipated Discharge Date Admission Date: July 19, 2022 Supervising Physician Co-Signing Physician Notes Pt seen and examined by myself, Dr. Noemy Weston MD. Care was coordinated with Deidra Salazar PA-C. Please refer to her note for further information. Pt admitted to surgical service for incarcerated ventral hernia repair. Was resting comfortably this AM when seen. States she had no acute concerns. Denies chest pain, SOB or abdominal pain. States she gets an occasional "twinge" in the belly button area. Breath sounds clear. Murmur noted on exam. abdomen soft, chronic edema in her legs bilaterally. UTI being treated with antibiotics. Continue to monitor with surgical team. Discharge per surgical team. Noemy Weston MD Subjective Seen and examined in 356 bed 2. Patient is comfortable and slept well, although feels that drain is in a painful position after dressing was replaced. Had another large bowel movement last evening. Tolerating diet well without any nausea or vomiting. No fever, chills, lightheadedness, chest pain, shortness of breath, nausea, vomiting, abdominal pain, dysuria, diarrhea or constipation. Plan for [facility] to [facility] if [facility] available. Review of Systems Review of Systems: At least ten systems reviewed and negative except as noted in the HPI. Physical Exam Physical Exam: Gen: WD/WN, morbidly obese, lying in bed, NAD, A&O x3 HEENT: Normocephalic, atraumatic, conjunctivae moist, sclerae anicteric, mucous membranes moist. Lung: Clear to Auscultation bilaterally, no wheezes/rales/rhonchi Heart: Regular rate, regular rhythm, no murmurs, rubs, or gallops Abdomen: Soft, obese + dressing/binder, drain visualized Extremities: chronic b/l lymphedema, no erythema Skin: Warm, no rash, negative turgor Results & Data Results & Data Vital Signs (Past 12 Hours) Vital Signs Temp Pulse Pulse Resp BP Pulse Ox O2 Del Method 07/26/22 11:04 36.5 C 62 18 127/58 L 99 Room Air 07/26/22 09:15 Room Air 07/26/22 07:42 36.9 C 53 L 18 122/55 L 97 Room Air 07/26/22 03:16 53 L 13 94 FiO2 07/26/22 11:04 07/26/22 09:15 07/26/22 07:42 07/26/22 03:16 21
[2022-07-26] MEDS: FAMOTIDINE 40 MG TABLET PO SCH (20:48)
[2022-07-27] MEDS: LEVOTHYROXINE SODIUM 100 MCG TABLET PO SCH (05:40)
[2022-07-27] MEDS: POLYETHYLENE (MIRALAX) 17 GM PACK PO SCH (08:11)
[2022-07-27] MEDS: MAGNESIUM OXIDE 400 MG TAB PO SCH (08:12)
[2022-07-27] MEDS: traMADol HCL 50 MG TABLET PO PRN (08:12)
[2022-07-27] MEDS: FUROSEMIDE 40 MG TAB PO PRN (08:12)
[2022-07-27] MEDS: METHYLPHENIDATE HCL 10 MG TABLET PO SCH ×2 (09:07→15:35)
[2022-07-27] MEDS ORDERED: ACETAMINOPHEN 325 MG TAB PO PRN (09:47)
--- NOTE | 2022-07-27 09:53 | Surgery Progress Note ---
Date of Service July 27, 2022 Assessment & Plan (1) Incarcerated ventral hernia: Plan: POD # 8 S/P open repair incarcerated ventral hernia with mesh - afebrile, vss - moderate postop pain - +bowel function Plan: Awaiting insurance auth for [facility] vs home with home PT Will add PO Tylenol for pain , can take in between Tramadol Continue reg diet will add BID colace and stop Daily Miralax F/u with Dr. Stanley in 1 week to remove ARACELI, needs to ambulate araceli drain teaching prior to discharge, keep the ARACELI in. I just saw pt, pt feels great, pt wants to go home today, post-op care instruction was given, F/U me one week, for remove ARACELI, Admission and Anticipated Discharge Date Admission Date: July 19, 2022 Supervising Physician Co-Signing Physician Notes Pt seen and examined by myself, Dr. Noemy Weston MD. Care was coordinated with Deidra Salazar PA-C. Please refer to her note for further information. Pt admitted to surgical service for incarcerated ventral hernia repair. Was resting comfortably this AM when seen. States she had no acute concerns. Denies chest pain, SOB or abdominal pain. States she gets an occasional "twinge" in the belly button area. Breath sounds clear. Murmur noted on exam. abdomen soft, chronic edema in her legs bilaterally. UTI being treated with antibiotics. Continue to monitor with surgical team. Discharge per surgical team. Noemy Weston MD Subjective still having 5/10 pain at rest, 6/10 pain with movement tramadol helps but not completely. Takes Tylenol at home for pain as well. no nausea tolerating diet bowel movement last night urinating without difficulty waiting for approval for [facility] Review of Systems Constitutional: obesity Eyes: as per Subjective / HPI Respiratory: sleep apnea Cardiovascular: Additional Comments: mitral regurgitation Gastrointestinal: gastric bypass Musculoskeletal: arthritis Neurologic: as per Subjective / HPI Psychiatric: as per Subjective / HPI Endocrine: hypothyroidism Hematologic / Lymphatic: Vitamin B 12, D, deficiency Physical Exam Constitutional: WD/WN, vitals as above + morbidly obese and cooperative; no acute distress Eyes: PERRL, conjunctivae normal, anicteric sclerae Neck: trachea midline, no thyromegaly Respiratory: normal respiratory effort, lungs clear to auscultation normal respiratory effort; no respiratory distress Cardiovascular: RRR, no murmur, no edema Gastrointestinal (Abdomen): Inspection/Auscultation: abdomen normal to inspection, + abdominal surgical incision (clean/dry/intact with rolando) and + abdominal surgical drain present (serosanguineous, minimal); abdomen not distended Percussion/Palpation: + abdomen tender (at incision site) and abdomen soft; no guarding and abdomen not rigid Musculoskeletal: no cyanosis or clubbing, extremities motor strength 5/5 Skin: no rashes, warm and dry Neurologic: patellar DTR's 2+ bilat, sensation intact Psychiatric: A+Ox3, euthymic affect Orientation: alert and oriented x 3 Results & Data Vital Signs (Past 12 Hours) Vital Signs Temp Pulse Pulse Resp BP Pulse Ox O2 Del Method 07/27/22 07:35 36.7 C 57 L 16 128/85 100 Room Air 07/27/22 01:30 50 L 14 97 FiO2 07/27/22 07:35 07/27/22 01:30 21
[2022-07-27] MEDS ORDERED: DOCUSATE SODIUM 100 MG CAP PO SCH (10:00)
--- NOTE | 2022-07-27 13:06 | Hospitalist Progress Note ---
Date of Service July 27, 2022 Assessment & Plan (1) Incarcerated ventral hernia: (2) Hypothyroidism: Plan 52yo female admitted for Incarcerated ventral hernia, status post surgical repair on July 20, 2022. Pt was admitted to surgical service for incarcerated ventral hernia repair. Currently stable for discharge, will be discharged home rather than to rehab facility. UTI -treated with antibiotics. Completed treatment while hospitalized. Anemia stable. Continue home lasix for lower extremity edema with pcp followup. Continue home medications as prescribed. Discharge per surgical team. Thank you for this consultation. Noemy Weston MD Admission and Anticipated Discharge Date Admission Date: July 19, 2022 Subjective States that she is feeling better. Denies abdominal pain or SOB. States that she has been passing gas. States she would like to know whether she is going home or to rehab. Review of Systems Review of Systems: All systems reviewed & are unremarkable except as noted in Subjective Physical Exam Physical Exam: General: Alert, oriented. No acute distress Skin: No noted rashes or bruises Psych: Appropriate mood and affect Neuro: No gross deficits HEENT: NC/AT CV: RRR, Normal s1, s2. No murmurs appreciated Resp: Breath sounds clear bilaterally, no increased effort of breathing. Abdomen: Soft, nontender, nondistended. No guarding. No organomegaly appreciated. Extremities: Edema in lower extremities bilaterally. Results & Data Results & Data Vital Signs (Past 12 Hours) Vital Signs Temp Pulse Pulse Resp BP Pulse Ox O2 Del Method 07/27/22 07:35 36.7 C 57 L 16 128/85 100 Room Air 07/27/22 01:30 50 L 14 97 FiO2 07/27/22 07:35 07/27/22 01:30 21
== END 2022-07-27 17:35 | disposition home or self-care (01) | DRG 354 ==
LOC: ED 11:47 → OR 16:55 → 3W 16:59 → SUATTDRO 21:27 → 3W 21:27

== ENCOUNTER 2023-02-26 12:46 | Observation (INO) ==
[2023-02-26 13:26] LABS: Basophils # (auto) 0.05 K/uL (0.00-0.20); Basophils % (auto) 0.6 %; Eosinophils # (auto) 0.11 K/uL (0.00-0.50); Eosinophils % (auto) 1.4 %; Immature Granulocytes # (auto) 0.04 K/uL (0.01-0.20); Immature Granulocytes % (auto) 0.5 %; Lymphocytes # (auto) 1.64 K/uL (1.20-3.40); Lymphocytes % (auto) 21.1 %; Mean Corpuscular Hemoglobin 30.9 pg (25.0-34.0); Mean Corpuscular Hgb Conc 32.6 g/dL (32.0-36.0); Mean Corpuscular Volume 94.9 fL (80.0-100.0); Monocytes # (auto) 0.65 K/uL (0.11-0.59); Monocytes % (auto) 8.4 %; Neutrophils # (auto) 5.28 K/uL (1.40-6.50); Platelet Count 298 K/uL (130-400); RDW Coefficient of Variation 12.8 % (11.5-14.5); RDW Standard Deviation 44.5 fL (36.4-46.3); Red Blood Count 4.53 M/uL (4.20-5.40); White Blood Count 7.77 K/ul (4.8-10.8)
[2023-02-26 13:43] LABS: Albumin Globulin Ratio 1.1 (0.9-2); Albumin Level 4.2 gm/dl (3.4-5.0); BUN Creatinine Ratio 21.3 (10-20); Bilirubin,Total 0.9 mg/dl (0.2-1.0); Calcium 9.8 mg/dl (8.6-10.3); Creatinine Clr Calc Pharmacy 116.1 ml/min; Est GFR (African American) 99.6 ml/min; Potassium 3.9 mmol/L (3.5-5.1); Total Protein 8.2 gm/dl (6.0-8.3)
[2023-02-26] MEDS ORDERED: cefTRIAXone SODIUM 2,000 MG/50 ML BAG IV STA (14:19)
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
[2023-02-26] MEDS ORDERED: SODIUM CHLORIDE 0.9% 1,000 ML IV ONE (14:24)
[2023-02-26 15:49] LABS: Influenza A virus by PCR Negative (Neg); Influenza B virus by PCR Negative (Neg); RSV by PCR Negative (Neg); SARS CoV2 RNA(COVID-19) Ceph NEGATIVE (Negative)
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
--- NOTE | 2023-02-26 16:36 | XRay Report ---
XR chest 1V portable CLINICAL HISTORY: fever TECHNIQUE: Single frontal radiograph of the chest was obtained. Comparison: Comparison is made to chest 02/17/2019 FINDINGS: A port catheter is seen. The cardiomediastinal silhouette is normal. The lungs are clear. No evidence of pleural effusion or pneumothorax. IMPRESSION: No acute abnormalities and in particular no radiographic evidence of pneumonia. ACT 112: Negative or not required by law. Electronically signed by: Reece Gutierrez M.D. 02/26/2023 4:35 PM
[2023-02-26] MEDS ORDERED: ALBUTEROL HFA 8 GM INHALER INH PRN (19:02)
[2023-02-26] MEDS ORDERED: EPINEPHrine ADULT AUTO-INJECT 0.3 MG SYR IM PRN (19:02)
[2023-02-26] MEDS ORDERED: ACETAMINOPHEN 325 MG TAB PO PRN (19:02)
[2023-02-26] MEDS ORDERED: NYSTATIN CR 15 GM TUBE EXT PRN (19:02)
[2023-02-26] MEDS ORDERED: FLUTICASONE PROPIONATE NA SPR 16 GM BTL PRN (19:02)
[2023-02-26] MEDS: ENOXAPARIN INJ 40 MG/0.4 ML SYR SQ SCH (21:12)
[2023-02-26] MEDS: FAMOTIDINE 40 MG TABLET PO SCH (21:12)
[2023-02-26] MEDS ORDERED: traMADol HCL 50 MG TABLET PO PRN (21:36)
[2023-02-27] MEDS: LEVOTHYROXINE SODIUM 88 MCG TABLET PO SCH (05:51)
[2023-02-27 08:07] LABS: Basophils # (auto) 0.05 K/uL (0.00-0.20); Basophils % (auto) 0.9 %; Eosinophils # (auto) 0.15 K/uL (0.00-0.50); Eosinophils % (auto) 2.6 %; Hematocrit (blood only) 38.4 % (37.0-47.0); Hemoglobin 12.1 g/dl (12.0-16.0); Immature Granulocytes # (auto) 0.02 K/uL (0.01-0.20); Immature Granulocytes % (auto) 0.3 %; Lymphocytes % (auto) 22.1 %; Mean Corpuscular Hemoglobin 30.5 pg (25.0-34.0); Mean Corpuscular Hgb Conc 31.5 g/dL (32.0-36.0); Mean Corpuscular Volume 96.7 fL (80.0-100.0); Mean Platelet Volume 11.2 fL (9.4-12.4); Monocytes # (auto) 0.62 K/uL (0.11-0.59); Monocytes % (auto) 10.6 %; Neutrophils # (auto) 3.73 K/uL (1.40-6.50); Neutrophils % (auto) 63.5 %; Platelet Count 268 K/uL (130-400); RDW Coefficient of Variation 12.8 % (11.5-14.5); RDW Standard Deviation 46.3 fL (36.4-46.3); Red Blood Count 3.97 M/uL (4.20-5.40); White Blood Count 5.87 K/ul (4.8-10.8)
[2023-02-27 08:21] LABS: BUN Creatinine Ratio 27.5 (10-20); C Reactive Protein 7.03 mg/dl (0-0.5); Creatinine Clr Calc Pharmacy 134.6 ml/min; Est GFR (African American) 117.6 ml/min; Est GFR (Non-African American) 101.5 ml/min; Potassium 3.9 mmol/L (3.5-5.1)
[2023-02-27] MEDS ORDERED: MEDROXYPROGESTERONE 10 MG PO SCH (09:00)
[2023-02-27 09:16] LABS: Appearance Urine Clear (Clear); Bilirubin Urine Negative (Negative); Blood Urine Negative (Negative); Color Urine Dark Yellow; Glucose Urine UA Negative (Negative); Ketones Urine Negative (Negative); Leukocyte Esterase Urine Negative (Negative); Nitrite Urine Negative (Negative); Protein Urine Negative (Negative); Specific Gravity Urine 1.028 (1.000-1.030); Urobilinogen Urine Negative (Negative); pH Urine 5.5 (4.5-7.5)
[2023-02-27] MEDS: ENOXAPARIN INJ 40 MG/0.4 ML SYR SQ SCH ×2 (09:31→19:23)
[2023-02-27] MEDS: FOLIC ACID 1 MG TAB PO SCH (11:45)
[2023-02-27] MEDS: ERGOCALCIFEROL 50,000 UNITS 1250 MCG CAP PO SCH (11:45)
[2023-02-27] MEDS: MULTIVITAMIN TAB PO SCH (11:46)
[2023-02-27] MEDS: cefTRIAXone SODIUM 2,000 MG in DEXTROSE 5 % MINI-B 50 ML IV SCH (15:12)
[2023-02-27] MEDS: HEPARIN 100 UNIT/ML 5ML FLUSH FLUSH PRN (15:56)
[2023-02-27] MEDS: FAMOTIDINE 40 MG TABLET PO SCH (19:23)
--- NOTE | 2023-02-27 22:07 | Hospitalist Progress Note ---
Date of Service February 27, 2023 Assessment & Plan (1) Cellulitis: Plan: Nonpruritic, swollen, hot, tender, erythematous left abdominal rash x1 day No leukocytosis; afebrile Elevated ESR at 115 Elevated CRP at 12.8 Elevated procalcitonin at 1.69 Continue Rocephin 2000 mg IV q24h Shwoing improvement on 02/27 continue above treatment (2) Hypersomnia: Plan: Continue methylphenidate (3) Hypothyroidism: Plan: Continue levothyroxine (4) Morbid obesity: Plan: BMI 61.2 Plan Disposition: Obs -admit to [facility] [place] Full code Regular diet VTE PPx: Lovenox 40 mg SQ q12h Admission and Anticipated Discharge Date Admission Date: February 26, 2023 Subjective Patient reports no new symptoms. Review of Systems Review of Systems: All systems reviewed & are unremarkable except as noted in HPI & below Physical Exam Physical Exam: General: no acute distress; non-toxic appearing; well-nourished; cooperative ABD: Distended secondary to patient's body habitus soft; BS present; LLQ abdome with decreased erythematous, mildly [facility] Results & Data Results & Data Vital Signs (Past 12 Hours) Vital Signs Temp Pulse Resp BP BP Pulse Ox O2 Del Method 02/27/23 21:15 36.7 C 51 L 16 110/71 97 Room Air 02/27/23 14:31 36.9 C 92 H 17 129/77 96 Room Air 02/27/23 10:44 49 L 126/75 97 Room Air PG Care Time/CCT Total # of Minutes Spent Total Time Spent with Patient: Total time spent is greater than 50% in coordination of care (as documented) at patient's floor/unit and/or counseling patient: Coding Level of Care Code 59241 SUB INP/OBS CARE 2/35MIN Diagnoses Cellulitis L03.90 Site of cellulitis: unspecified site Hypersomnia G47.10 Hypothyroidism E03.9 Morbid obesity E66.01 (1) Cellulitis Site of cellulitis: unspecified site Qualified Code(s): L03.90 - Cellulitis, unspecified
[2023-02-28] MEDS: LEVOTHYROXINE SODIUM 88 MCG TABLET PO SCH (05:37)
[2023-02-28] MEDS: HEPARIN 100 UNIT/ML 5ML FLUSH FLUSH PRN (07:22)
[2023-02-28 08:19] LABS: Basophils # (auto) 0.04 K/uL (0.00-0.20); Basophils % (auto) 0.8 %; Eosinophils # (auto) 0.16 K/uL (0.00-0.50); Eosinophils % (auto) 3.2 %; Hematocrit (blood only) 36.8 % (37.0-47.0); Hemoglobin 11.6 g/dl (12.0-16.0); Immature Granulocytes # (auto) 0.01 K/uL (0.01-0.20); Immature Granulocytes % (auto) 0.2 %; Lymphocytes # (auto) 1.55 K/uL (1.20-3.40); Lymphocytes % (auto) 30.8 %; Mean Corpuscular Hemoglobin 30.6 pg (25.0-34.0); Mean Corpuscular Hgb Conc 31.5 g/dL (32.0-36.0); Mean Corpuscular Volume 97.1 fL (80.0-100.0); Mean Platelet Volume 11.1 fL (9.4-12.4); Monocytes # (auto) 0.55 K/uL (0.11-0.59); Monocytes % (auto) 10.9 %; Neutrophils # (auto) 2.72 K/uL (1.40-6.50); Neutrophils % (auto) 54.1 %; Platelet Count 269 K/uL (130-400); RDW Coefficient of Variation 12.8 % (11.5-14.5); RDW Standard Deviation 46.3 fL (36.4-46.3); Red Blood Count 3.79 M/uL (4.20-5.40); White Blood Count 5.03 K/ul (4.8-10.8)
[2023-02-28 08:49] LABS: BUN Creatinine Ratio 22.5 (10-20); Calcium 8.7 mg/dl (8.6-10.3); Creatinine Clr Calc Pharmacy 130.9 ml/min; Est GFR (African American) 115.1 ml/min; Est GFR (Non-African American) 99.3 ml/min; Potassium 3.5 mmol/L (3.5-5.1)
[2023-02-28] MEDS: FOLIC ACID 1 MG TAB PO SCH (09:38)
[2023-02-28] MEDS: MULTIVITAMIN TAB PO SCH (09:38)
[2023-02-28] MEDS: ERGOCALCIFEROL 50,000 UNITS 1250 MCG CAP PO SCH (09:38)
[2023-02-28] MEDS: ENOXAPARIN INJ 40 MG/0.4 ML SYR SQ SCH (09:38)
--- NOTE | 2023-02-28 10:15 | Hospitalist Progress Note ---
Date of Service February 28, 2023 Assessment & Plan (1) Cellulitis: Plan: Nonpruritic, swollen, hot, tender, erythematous left abdominal rash x1 day No leukocytosis; afebrile Elevated ESR at 115 Elevated CRP at 12.8 Elevated procalcitonin at 1.69 Continue Rocephin 2000 mg IV q24h Shwoing improvement on 02/27 continue above treatment (2) Hypersomnia: Plan: Continue methylphenidate (3) Hypothyroidism: Plan: Continue levothyroxine (4) Morbid obesity: Plan: BMI 61.2 Plan Disposition: Obs -admit to [facility] Full code Regular diet VTE PPx: Lovenox 40 mg SQ q12h Admission and Anticipated Discharge Date Admission Date: February 26, 2023 Results & Data Results & Data Vital Signs (Past 12 Hours) Vital Signs Temp Pulse Resp BP Pulse Ox O2 Del Method 02/28/23 08:33 36.7 C 45 L 18 133/63 96 Room Air PG Care Time/CCT Total # of Minutes Spent Total Time Spent with Patient: Total time spent is greater than 50% in coordination of care (as documented) at patient's floor/unit and/or counseling patient: Coding Diagnoses Cellulitis L03.90 Site of cellulitis: unspecified site Hypersomnia G47.10 Hypothyroidism E03.9 Morbid obesity E66.01 (1) Cellulitis Site of cellulitis: unspecified site Qualified Code(s): L03.90 - Cellulitis, unspecified
[2023-02-28] MEDS: cefTRIAXone SODIUM 2,000 MG in DEXTROSE 5 % MINI-B 50 ML IV SCH (13:27)
--- NOTE | 2023-02-28 14:32 | Discharge Summary ---
Date of Service February 28, 2023 Admission HPI Per Admitting Provider Ines is a 52-year-old female with PMH of arthritis, right SNHL, sinus bradycardia, hypothyroidism, sleep-wake schedule disorder, morbid obesity, CDH, GERD, and DJD of the right hip. She presented for "large red lump" on lower left abdomen, and behind the left ear x1 day. She reports that she had a C fever Saturday night of 101.1 F at home; she took Tylenol, and it resolved overnight. She then woke up on Saturday morning 02/25 with a large red [place] on her stomach and left flank, and tenderness behind her left ear. She denies taking any medications for the rash. No new lotions. No new laundry detergent. No rashes like this in the past. Rash is nonpruritic, hot to touch. Patient took her morning medications. She reports no new changes with her medications. No recent travel. No tick bites. She denies smoking, alcohol, vaping, recreational drug use. Patient lives with her mother. Patient is bradycardic at 47 bpm at time of admission; vitals otherwise stable. ED course: Rocephin 2000 mg IV NSS 1000 mL ROS: Patient endorses rash on L abdomen, and swelling/numbness/tingling in legs (ongoing). Patient denies itching, fever, chills, sweating, SAUCEDA, dizzness, CP, SOB, abdominal pain, N/V/D, urinary s/s, or burning with urination. Principal Diagnosis Cellulitis Discharge Exam Constitutional WD/WN, vitals as above Skin Significant improvement of cellulitis from admission pictures. Discharge Data Allergies Allergy/AdvReac Type Severity Reaction Status Date / Time hornet venom Allergy Severe ANAPHYLAXIS Verified 02/26/23 15:01 WITH YELLOW JACKETS codeine Allergy Intermediate ALLERGIC Verified 02/26/23 15:01 GENERIC TYLENOL #3 (?)-RASH HIVES hydrocodone Allergy Intermediate Rash Verified 02/26/23 15:01 Iodinated Contrast Media Allergy Intermediate RASH Verified 02/26/23 15:01 ITCHY-CAN EAT SHELLFISH adhesive AdvReac Intermediate TAPE-SWELLING Verified 02/26/23 15:01 TESTS SKIN Consultations 02/26/23 15:43 ED Decision to Admit Stat Hospital Course (1) Cellulitis: Ines Savage is a 52 year old female admitted to [facility] from February 26 - 2022 due to anterior abdominal wall swelling. This was diagnosed as cellulitis and treated with ceftriaxone with significant improvement. She was switched to oral Keflex on discharge for a total of 7 days (4 more days) of antibiotics. (2) Hypersomnia: (3) Hypothyroidism: (4) Morbid obesity: Total Time Total Time Spent Total Time Spent (In Minutes): 35 Discharge Plan Discharge Items Patient Disposition: Home - Self-Care Reason For Visit: CELLULITUS Discharge Diagnosis: Cellulitis Activity: Resume your previous activity Non-emergency contact: Primary Care Provider Call non-emergency contact if: you have any medication questions and your symptoms worsen Follow-up/Referrals: Tong Wade DO [Primary Care Provider] - 03/07/23 11:00 am Diet: Regular Addtl Attending Provider Instructions: You were admitted to [facility] from February 262022 due to anterior abdominal wall swelling. This was diagnosed as cellulitis and treated with ceftriaxone with significant improvement. You will be switched to oral Keflex on discharge for a total of 7 days (4 more days) of antibiotics. Pending Studies at Discharge: No Stand-Alone Forms: [facility], Smoking Cessation Medications and DC Order Prescriptions: Continued fluticasone propionate [Flonase Allergy Relief] 50 mcg/actuation spray,suspension 2 spray intranasal DAILY PRN (Reason: Congestion) Qty: 47.4 3RF (DME) miscellaneous medical supply Misc See Rx Instructions .ROUTE .MEDSUPPLY Qty: 1 0RF Rx Instructions: HOSPITAL BED MATTRESS DX : E66.01 Q65.2 famotidine 40 mg tablet 40 mg PO HS Qty: 90 3RF ergocalciferol (vitamin D2) [Vitamin D2] 1,250 mcg (50,000 unit) capsule 100,000 unit PO WK Qty: 24 3RF Rx Instructions: TAKE THIS MED EVERY SATURDAY. albuterol sulfate 90 mcg/actuation HFA aerosol inhaler 2 puff INHALATION Q4H PRN (Reason: Shortness Of Breath) Qty: 1 5RF epinephrine 0.3 mg/0.3 mL auto-injector 0.3 mg IM Q3H PRN (Reason: Allergic Reaction) Qty: 1 3RF (DME) barictric wheeled walker 0 .Route .MEDSUPPLY Qty: 1 0RF Rx Instructions: As directed nystatin 100,000 unit/gram cream 1 applic TOP BID PRN (Reason: Skin Irritation) Qty: 15 1RF tramadol-acetaminophen 37.5-325 mg tablet 1 tab PO Q6H PRN (Reason: Pain) 30 Days Qty: 90 0RF nystatin 100,000 unit/gram powder 1 applic topical DAILY PRN (Reason: rash) Qty: 60 1RF methylphenidate HCl 20 mg tablet extended release 40 mg PO DAILY Qty: 60 0RF levothyroxine 88 mcg tablet 88 mcg PO DAILY Qty: 90 1RF furosemide 40 mg tablet See Rx Instructions PO DAILY PRN (Reason: Edema) Qty: 180 3RF Rx Instructions: 1-2 tablets PO daily PRN; cyanocobalamin (vitamin B-12) 1,000 mcg/mL kit 1,000 mcg IM MONTHLY medroxyprogesterone 10 mg Tablet 10 mg PO DAILY Rx Instructions: TAKES ON DAYS 1 THRU 14. Discharge Orders: Discharge Order (Routine); Ordered 02/28/23 Ordered By: Jaspreet Cordero Admission Data Admit Date/Time: 02/26/23 17:06 Attending Provider: Jaspreet Cordero Admit Provider: Jaspreet Cordero Primary Care Provider: Tong Wade Other Interventions: Discharge Summary Assessment (RN) Last Done: 02/28/23 15:02 Coding Level of Care Code 45910 INP/OBS DISCH >30 MIN Diagnoses Cellulitis L03.90 Site of cellulitis: unspecified site Hypersomnia G47.10 Hypothyroidism E03.9 Morbid obesity E66.01
== END 2023-02-28 16:15 | disposition home or self-care (01) ==
LOC: 3W 12:46 → ED 12:46 → SUATTDRO 17:06 → 3W 18:31